=== PATIENT | female | born 1935 | race Caucasian/White ===

== ENCOUNTER → 2017-10-11 | Day surgery (SDC) | payer MEDICARE ==
[~2017-10-11] VITALS: Ht 157.5 cm; Wt 54.5 kg
[~2017-10-11] MED LIST: BACITRACIN TOP OINT 15 GM TUBE ONE; CHLORHEXIDINE GLUCONATE 2 % 1 PACK (2 CLOTHS) TOPICAL PRN; CIPROFLOXACIN/DEXT 400 MG/200 ML IV SCH; INSULIN HUMAN REGULAR 1,000 UNITS/10 ML VIAL SQ PRN; LACTATED RINGER'S 1000 ML IV PRN; LIDOCAINE 1%/EPINEPHrine 1:100,000 SOLN 30 ML VIAL ONE; METOPROLOL TARTRATE 25 MG TAB PO PRN; MINERAL OIL 10 ML VIAL ONE; OLME1TAB13 PO; POVIDONE IODINE 5% (ANTISEPSIS KIT) 4 APPLICATIONS EACH NARE PRN; SIMV20TA PO; SODIUM CHLORID 0.9% 500 ML IV PRN
[2017-10-11 08:31] LABS: HEMOGLOBIN 11.4 GM/DL (11.6-15.3); MEAN CORPUSCULAR HEMOGLOBIN 28.8 PG (27.0-34.0); MEAN CORPUSCULAR HGB CONC 32.7 % (32.0-36.0); MEAN PLATELET VOLUME 7.6 FL (7.0-11.0); PLATELET COUNT 273 TH/MM3 (150-450); RED BLOOD COUNT 3.98 MIL/MM3 (4.00-5.30); RED CELL DISTRIBUTION WIDTH 12.9 % (11.6-17.2); WHITE BLOOD COUNT 4.7 TH/MM3 (4.0-11.0)
[2017-10-11] MEDS: BUPIVACAINE/EPINEPHRINE 0.5% PF 10 ML VIAL INFIL ONE ×2 (09:27→09:38)
[2017-10-11 12:30] VITALS: BP 108/48; PULSE 64; RESP 16; TEMP 98.1; O2SAT 100
--- NOTE | 2017-10-11 14:16 | PD.OP ---
Operative Report Date of Surgery: Oct 11, 2017 Preoperative Diagnosis: (1) Melanoma of scalp Postoperative Diagnosis: (1) Melanoma of scalp Procedure: Wide local excision of left frontal scalp melanoma Anesthesia: Gen. Surgeon: Nabeel Velasquez Mr Teacher(s): . Operation and Findings: The patient is an 82-year-old female who presented to my clinic with a biopsy- proven left frontal scalp melanoma. Risks benefits and alternative treatments were discussed. All questions answered. The patient, per my recommendation, elected to assume the risks of operative treatment. Informed consent was therefore obtained for a wide local excision of the lesion. The surgical site was marked in preoperative holding. Antibiotics were given on-call to the operating room. The patient was taken to the operating room. All pressure points were padded. After the smooth induction of general anesthesia, a timeout was performed. The hair overlying the lesion was shaved with clippers. The lesion was outlined. It measured roughly 1.3 cm in greatest dimension. A 1 cm margin was then drawn around the lesion. Following this, 20 mls total of 1% lidocaine with epinephrine and half percent Marcaine with epinephrine mixed 1-1 was instilled into and around the surgical site. The surgical site was prepped and draped in the usual sterile fashion. Sharp dissection was used to free the specimen from the adjacent tissue. Galea was taken with the specimen as the deep margin. The specimen was marked and sent to pathology for permanent section. The wound was irrigated. Hemostasis was obtained. The wound, with contraction, now measured roughly 5cms. a 3-0 PDS was then used and a pursestring fashion, allowing the wound to be cinched closed significantly , though not entirely. Hemostasis was again ensured. A bolster dressing was fashioned out of mineral oil cotton balls Xeroform and bacitracin and tied in place over the wound using 2-0 silk. The wound was further dressed with 4 x 4 gauze and AVD pads followed by craniotomy stockinette. The patient was awoken smoothly from anesthesia and arrive stable and doing well to the PACU. All needle sponge and instrument counts were correct 2. Nabeel Velasquez MD Oct 11, 2017 14:16
== END | disposition home or self-care (01) ==
LOC: PHSDC 07:26
PROVIDERS: ATTEND Student in an Organized Health Care Education/Training Program
DX: C43.4 Malignant melanoma of scalp and neck (principal); I10 Essential (primary) hypertension; Z01.818 Encounter for other preprocedural examination
CPT/HCPCS: 00300; 11622; 36415; 85027; 88305; J0744; J7120; J3010

== ENCOUNTER → 2017-10-18 | Day surgery (SDC) | payer MEDICARE ==
[~2017-10-18] VITALS: Ht 157.5 cm; Wt 55.8 kg
[~2017-10-18] MED LIST changes: +BUPIVACAINE/EPINEPHRINE 0.25% 50 ML VIAL ONE; +CIPROFLOXACIN 400 MG PREMIX 200 ML ONE; +DO NOT ADM ANY ANTICOAGULANT DRUGS PRN; -INSULIN HUMAN REGULAR 1,000 UNITS/10 ML VIAL SQ PRN; +LACTATED RINGER'S 1000 ML IV SCH; -LIDOCAINE 1%/EPINEPHrine 1:100,000 SOLN 30 ML VIAL ONE; +LIDOCAINE 2% JELLY 5 ML TUBE ONE; +LIDOCAINE 2%/EPINEPHrine PF 1:200,000 20ML SDV ONE; -MINERAL OIL 10 ML VIAL ONE; +MULTTAB67 PO; +NEOMYCIN/POLYMYXIN 1 ML G.U. IRRIGANT ONE; +oxyCODONE/ACETAMINOPHEN 5 MG/325 MG TAB PO PRN
--- NOTE | 2017-10-18 16:15 | PD.OP ---
Operative Report Date of Surgery: Oct 18, 2017 Preoperative Diagnosis: (1) Scalp wound (2) Melanoma of scalp Postoperative Diagnosis: (1) Melanoma of scalp (2) Scalp wound Procedure: Local tissue rearrangement of 4 cm scalp wound (the primary and secondary defect area totaled over 60 cm Anesthesia: Gen. Surgeon: Nabeel Velasquez Candy Forming Machine Operator(s): Олег Molina Operation and Findings: This is an 82-year-old female who presented to the plastic surgery clinic with a biopsy-proven left frontal scalp melanoma. She is now one week status post wide local excision of the above. Her permanent pathology showed negative margins. Although permanent pathology was read as melanoma in situ, the pathology from the rn care transition excision showed invasion to a depth of 0.7 mm as well as positive peripheral and deep margins. As such during wide local excision one week ago, the lesion was resected with one-sided meter margins. This left a defect of almost 4 cm in diameter. The patient was advised that this would likely require rotational flaps, though a skin graft might be necessary. The risks benefits and alternative treatments were discussed with the patient. Specific risks included but were not limited to permanent numbness to the top of her head, hair loss, and additional incisions to allow for the rotation. All questions were answered. The patient expressed understanding of the above and elected to assume the risks of operative closure of the above wound. Informed consent was therefore obtained. The patient was marked in the preoperative holding day. The patient was given preoperative antibiotics early education teacher to the operating room. She was taken to the operating room. All pressure points were padded. After the smooth induction of general anesthesia, a supraorbital nerve block was performed by injecting 2% lidocaine with epinephrine (3 mL) and a horizontal superficial subcutaneous bar overlying the supraorbital and supratrochlear foramen. Following this the surgical site as well as roughly 10 cm around the surgical site was injected with a total of 40 mL of 2% lidocaine with epinephrine and quarter percent Marcaine mixed 1-1. The surgical site was shaved with clippers. The surgical site was prepped and draped in the usual sterile fashion. Fibrinous exudate covering the wound bed was sharply debrided. There was minimal surrounding erythema. The wound bed looked clean. Using sharp and blunt dissection, the surrounding scalp was widely undermined in the subgaleal plane to roughly 10-12 cm circumferentially. Hemostasis was obtained with Bovie cautery. At this point opposing double hooks were used to simulate an attempt at skin approximation. There was excessive tension on the closure. As such double opposing rotational galea and skin composite flaps were creating using the 15 blade. These were held in place with 3-0 Vicryl interrupted. 3-0 Vicryl interrupteds were then used to close the remainder of the incisions by dividing the incisions and half sequentially. Following this interrupted 40 nylons in a horizontal mattress fashion were used to get excellent incision edge eversion centrally. Lastly a running locking 4-0 chromic was used for final skin closure. The wound was cleansed. Bacitracin and Xeroform were used to dress the wound, followed by dry gauze fluffs an abd pad and Jose G wrap for light compression followed by a craniotomy stockinette. All needle sponge and instrument counts were correct 2. The patient was awoken from anesthesia and arrived stable and doing well to the PACU Nabeel Velasquez MD Oct 18, 2017 16:15
[2017-10-18 17:46] VITALS: BP 118/50; PULSE 65; RESP 18; TEMP 96.8; O2SAT 100
--- NOTE | 2017-10-19 17:50 | EKG ---
Date Performed: 10/18/2017 Time Performed: 11:58:21 PTAGE: 82 years EKG: SINUS BRADYCARDIA BORDERLINE ECG PREVIOUS TRACING : 07/17/2013 15.04 DOCTOR: Emmie Peña Interpretating Date/Time 10/19/2017 17:40:14
== END | disposition home or self-care (01) ==
LOC: HSDC 11:15
PROVIDERS: ATTEND Student in an Organized Health Care Education/Training Program
DX: C43.4 Malignant melanoma of scalp and neck (principal); I10 Essential (primary) hypertension; Z01.810 Encounter for preprocedural cardiovascular examination
CPT/HCPCS: 00300; 14021; 93005; J0744; J3010; J7120

== ENCOUNTER 2017-10-21 11:30 | Inpatient (IN) | payer MEDICARE ==
[2017-10-21] VITALS (8 sets, daily range): BP systolic 114–153; BP diastolic 57–68; PULSE 56–65; RESP 14–24; TEMP 96–99; O2SAT 96–100
[~2017-10-21] VITALS: Ht 157.5 cm; Wt 56.0 kg
[~2017-10-21 11:30] MED LIST changes: -BACITRACIN TOP OINT 15 GM TUBE ONE; -BUPIVACAINE/EPINEPHRINE 0.25% 50 ML VIAL ONE; -CHLORHEXIDINE GLUCONATE 2 % 1 PACK (2 CLOTHS) TOPICAL PRN; -CIPROFLOXACIN 400 MG PREMIX 200 ML ONE; -CIPROFLOXACIN/DEXT 400 MG/200 ML IV SCH; -DO NOT ADM ANY ANTICOAGULANT DRUGS PRN; -LACTATED RINGER'S 1000 ML IV PRN; -LACTATED RINGER'S 1000 ML IV SCH; -LIDOCAINE 2% JELLY 5 ML TUBE ONE; -LIDOCAINE 2%/EPINEPHrine PF 1:200,000 20ML SDV ONE; -METOPROLOL TARTRATE 25 MG TAB PO PRN; -NEOMYCIN/POLYMYXIN 1 ML G.U. IRRIGANT ONE; -POVIDONE IODINE 5% (ANTISEPSIS KIT) 4 APPLICATIONS EACH NARE PRN; -SODIUM CHLORID 0.9% 500 ML IV PRN; -oxyCODONE/ACETAMINOPHEN 5 MG/325 MG TAB PO PRN
[2017-10-21] MEDS ORDERED: SODIUM CHLOR 0.9% 1000 ML INJ 1,000 ML IV ONE ×2 (12:00→13:00)
--- NOTE | 2017-10-21 12:19 | RADRPT ---
EXAM DATE/TIME: 10/21/2017 12:06 [facility] COMPARISON: No previous studies available for comparison. INDICATIONS : Syncope, fever, short of breath. MEDICAL HISTORY : Melanoma SURGICAL HISTORY : Large Melanoma removed top of head. ENCOUNTER: Initial ACUITY: 1 day PAIN SCORE: 0/10 LOCATION: Bilateral chest FINDINGS: The lungs are clear without infiltrate, nodule, or mass. There is no appreciable pleural effusion fo r technique. Heart and mediastinum are unremarkable. There is evidence for prior granulomatous expos ure with calcified hilar lymph nodes. IMPRESSION: No acute cardiopulmonary disease. Deena Estrada MD on October 21, 2017 at 12:16 Board Certified Radiologist. This report was verified electronically.
[2017-10-21 12:26] LABS: AUTOMATED NEUTROPHIL # 8.9 TH/MM3 (1.8-7.7); BASOPHIL % 0.3 % (0.0-2.0); EOSINOPHIL # 0.1 TH/MM3 (0-0.4); EOSINOPHIL % 1.2 % (0.0-4.0); HEMATOCRIT 32.1 % (35.0-46.0); HEMOGLOBIN 11.5 GM/DL (11.6-15.3); LYMPH % 11.4 % (9.0-44.0); LYMPHOCYTE # 1.3 TH/MM3 (1.0-4.8); MEAN CELL VOLUME 88.1 FL (80.0-100.0); MEAN CORPUSCULAR HEMOGLOBIN 31.5 PG (27.0-34.0); MEAN CORPUSCULAR HGB CONC 35.8 % (32.0-36.0); MEAN PLATELET VOLUME 7.5 FL (7.0-11.0); MONOCYTE # 0.7 TH/MM3 (0-0.9); NEUT % 81.1 % (16.0-70.0); PLATELET COUNT 281 TH/MM3 (150-450); PROTHROMBIN TIME - PATIENT 10.5 SEC (9.8-11.6); RED BLOOD COUNT 3.65 MIL/MM3 (4.00-5.30); WHITE BLOOD COUNT 10.9 TH/MM3 (4.0-11.0)
--- NOTE | 2017-10-21 12:45 | RADRPT ---
EXAM DATE/TIME: 10/21/2017 12:13 [facility] COMPARISON: No previous studies available for comparison. INDICATIONS : Patient had a syncopal episode today, now feeling weak. RADIATION DOSE: 56.35 CTDIvol (mGy) MEDICAL HISTORY : Hypertension. Arthritis. Renal disease,melanoma SURGICAL HISTORY : Hysterectomy. Melanoma removed from head ENCOUNTER: Initial ACUITY: 1 day PAIN SCALE: 3/10 LOCATION: cranial TECHNIQUE: Multiple contiguous axial images were obtained of the head. Using automated exposure control and adj ustment of the mA and/or kV according to patient size, radiation dose was kept as low as reasonably a chievable to obtain optimal diagnostic quality images. DICOM format image data is available electro nically for review and comparison. FINDINGS: There is no evidence for intracranial hemorrhage, mass effect, mass lesions, edema, or extra-axial fl uid collections. The visualized bony structures appear intact. The ventricles are normal size for t he patient's age. There are no signs of acute infarction for technique. IMPRESSION: Unremarkable study. Deena Estrada MD on October 21, 2017 at 12:42 Board Certified Radiologist. This report was verified electronically.
--- NOTE | 2017-10-21 12:47 | PD ---
HPI Chief Complaint: Syncope/Near-Syncope Time Seen by Provider: 11:39 Travel History International Travel<30 days: No Contact w/Intl Traveler<30days: No Traveled to known affect area: No History of Present Illness HPI 82-year-old female that presents to the ED for evaluation of syncope as well as possible sepsis. Patient has a history of hypertension as well as melanoma that was removed at the beginning of this month at this facility. Per patient she had a melanoma removed and on 18 October she had the skin reattached under anesthesia. Per family member yesterday patient had a syncopal episode while standing and she looked to the right and then she passed out. She did not seek treatment at the time and she did not hit her head. Today she was sitting and she was getting her dressing change and then she developed another syncopal episode. She did not fell down but the family member was able to put her on the ground. She denies ever being worked up for this in the past. She denies any fevers but since having this she has had chills and cannot stop shaking of my examination. She denies any cough or runny nose. No chest pain or shortness of breath. She does state having some mild abdominal pain on occasion , but she states is more on her back. Has an allergy to penicillin. No other medical issues. No urinary or BM issues. Pain per patient is 4/10 on the back and 6/10 on the head. She denies any blurry vision or double vision. No discharge from the wound on the head. PFSH Past Medical History Cancer: Yes (SKIN CANCER) Cardiovascular Problems: No Diabetes: No Diminished Hearing: No Endocrine: No Genitourinary: No Hepatitis: No Hiatal Hernia: No Hypertension: Yes Immune Disorder: No Musculoskeletal: Yes (ARTHRITIS) Neurologic: No Psychiatric: No Reproductive: No Respiratory: No Thyroid Disease: No Past Surgical History Abdominal Surgery: No AICD: No Cardiac Surgery: No Ear Surgery: No Endocrine Surgery: No Eye Surgery: Yes (BILAT CATARACT SX) Genitourinary Surgery: No Gynecologic Surgery: Yes ( X 2, HYSTERECTOMY) Hysterectomy: Yes Joint Replacement: Yes (LEFT/right KNEE) Oral Surgery: No Pacemaker: No Thoracic Surgery: No Social History Alcohol Use: No Tobacco Use: No Substance Use: No Allergies-Medications (Allergen,Severity, Reaction): Coded Allergies: penicillin G (Verified Allergy, Severe, HEART, 10/21/17) Reported Meds & Prescriptions Reported Meds & Active Scripts Active Reported Multiple Vitamin 1 Tab 1 Tab PO DAILY Simvastatin 20 Mg Tab 20 Mg PO DAILY Olmesartan 40 Mg Tab 40 Mg PO DAILY Review of Systems Except as stated in HPI: all other systems reviewed are Neg Physical Exam Narrative GENERAL: SKIN: Warm and dry. She has a surgical scar to the head that appears to be recent. Patient has suturing HEAD: Atraumatic. Normocephalic. EYES: Pupils equal and round. No scleral icterus. No injection or drainage. ENT: No nasal bleeding or discharge. Mucous membranes pink and moist. Tongue is midline. No uvula deviation. NECK: Trachea midline. No JVD. CARDIOVASCULAR: Regular rate and rhythm. No murmurs, S3, S4. RESPIRATORY: No accessory muscle use. Clear to auscultation. Breath sounds equal bilaterally. GASTROINTESTINAL: Abdomen soft, non-tender, nondistended. Hepatic and splenic margins not palpable. MUSCULOSKELETAL: Extremities without clubbing, cyanosis, or edema. No obvious deformities. Full range of motion of the upper and lower extremities bilaterally. 2+ pulses bilaterally. NEUROLOGICAL: Awake and alert. No obvious cranial nerve deficits. Motor grossly within normal limits. Five out of 5 muscle strength in the arms and legs. Normal speech. PSYCHIATRIC: Appropriate mood and affect; insight and judgment normal. Data Data Last Documented VS Vital Signs Date Time Temp Pulse Resp B/P (MAP) Pulse Ox O2 Delivery O2 Flow Rate FiO2 10/21/17 14:28 97.7 65 15 134/63 (86) 98 Room Air Orders Orders Electrocardiogram (10/21/17 11:49) Complete Blood Count With Diff (10/21/17 11:49) Comprehensive Metabolic Panel (10/21/17 11:49) Ckmb (Isoenzyme) Profile (10/21/17 11:49) Troponin I (10/21/17 11:49) Prothrombin Time / Inr (Pt) (10/21/17 11:49) Act Partial Throm Time (Ptt) (10/21/17 11:49) Blood Culture (10/21/17 11:49) Lipase (10/21/17 11:49) Urinalysis - C+S If Indicated (10/21/17 11:49) Cath For Specimen (10/21/17 11:49) Magnesium (Mg) (10/21/17 11:49) Thyroid Stimulating Hormone (10/21/17 11:49) Chest, Single Ap (10/21/17 11:49) Ct Brain W/O Iv Contrast(Rout) (10/21/17 11:49) Iv Access Insert/Monitor (10/21/17 11:49) Ecg Monitoring (10/21/17 11:49) Oximetry (10/21/17 11:49) Orthostatic Vital Signs (10/21/17 11:49) Lactic Acid Sepsis Protocol (10/21/17 11:49) Sodium Chlor 0.9% 1000 Ml Inj (Ns 1000 M (10/21/17 12:00) Sodium Chlor 0.9% 1000 Ml Inj (Ns 1000 M (10/21/17 13:00) Acetaminophen (Tylenol) (10/21/17 13:15) CKMB (10/21/17 12:00) CKMB% (10/21/17 12:00) Ondansetron Inj (Zofran Inj) (10/21/17 13:30) Influenzae A/B Antigen (10/21/17 13:31) Vancomycin Inj (Vancomycin Inj) (10/21/17 13:31) Aztreonam Inj (Azactam Inj) (10/21/17 13:31) Metronidazole 500 Mg Inj (Flagyl 500 Mg (10/21/17 13:31) Admit Order (Ed Use Only) (10/21/17 14:36) Labs Laboratory Tests Test 10/21/17 12:00 10/21/17 12:05 White Blood Count 10.9 TH/MM3 Red Blood Count 3.65 MIL/MM3 Hemoglobin 11.5 GM/DL Hematocrit 32.1 % Mean Corpuscular Volume 88.1 FL Mean Corpuscular Hemoglobin 31.5 PG Mean Corpuscular Hemoglobin Concent 35.8 % Red Cell Distribution Width 14.0 % Platelet Count 281 TH/MM3 Mean Platelet Volume 7.5 FL Neutrophils (%) (Auto) 81.1 % Lymphocytes (%) (Auto) 11.4 % Monocytes (%) (Auto) 6.0 % Eosinophils (%) (Auto) 1.2 % Basophils (%) (Auto) 0.3 % Neutrophils # (Auto) 8.9 TH/MM3 Lymphocytes # (Auto) 1.3 TH/MM3 Monocytes # (Auto) 0.7 TH/MM3 Eosinophils # (Auto) 0.1 TH/MM3 Basophils # (Auto) 0.0 TH/MM3 CBC Comment DIFF FINAL Differential Comment Prothrombin Time 10.5 SEC Prothromb Time International Ratio 1.0 RATIO Activated Partial Thromboplast Time 21.3 SEC Blood Urea Nitrogen 29 MG/DL Creatinine 1.44 MG/DL Random Glucose 102 MG/DL Total Protein 7.2 GM/DL Albumin 4.0 GM/DL Calcium Level 9.1 MG/DL Magnesium Level 1.7 MG/DL Alkaline Phosphatase 74 U/L Aspartate Amino Transf (AST/SGOT) 60 U/L Alanine Aminotransferase (ALT/SGPT) 53 U/L Total Bilirubin 0.3 MG/DL Sodium Level 132 MEQ/L Potassium Level 4.8 MEQ/L Chloride Level 102 MEQ/L Carbon Dioxide Level 21.9 MEQ/L Anion Gap 8 MEQ/L Estimat Glomerular Filtration Rate 35 ML/MIN Total Creatine Kinase 231 U/L Creatine Kinase MB 5.2 NG/ML Creatine Kinase MB % 2.3 % Troponin I LESS THAN 0.02 NG/ML Lipase 748 U/L Thyroid Stimulating Hormone 3rd Gen 2.190 uIU/ML Lactic Acid Level 1.6 mmol/L [facility] Medical Decision Making Medical Screen Exam Complete: Yes Emergency Medical Condition: Yes Medical Record Reviewed: Yes Interpretation(s) CBC & BMP Diagram 10/21/17 12:00 Total Protein 7.2, Albumin 4.0, Calcium Level 9.1, Magnesium Level 1.7, Alkaline Phosphatase 74, Aspartate Amino Transf (AST/SGOT) 60 H, Alanine Aminotransferase (ALT/SGPT) 53, Total Bilirubin 0.3 CT of the head was negative. Chest x-ray was negative for acute disease. Lactic acid within normal limits. EKG shows sinus rhythm with no sign of acute ischemia or arrhythmia. Troponin and CKMB were negative. Differential Diagnosis Fever versus sepsis versus syncope versus presyncope versus cellulitis versus postsurgical infection Narrative Course 82-year-old female that presents to the ED for evaluation of syncope and fever. Patient was properly examined and was found to have signs and symptoms concerning for sepsis and syncope. Labs and imaging were ordered. Patient was found to be hypothermic at 96. She was put on the warmer. Labs and imaging were ordered. Patient was turned IV fluids. Her surgical scar for the most part looks okay except there is some swelling but no obvious purulence or redness. Labs and imaging wasn't she unremarkable. Patient does appear to have acute kidney injury. Patient initially had barely any output from her [place] but after given fluid she's been putting good urine. At this time I recommend admission for further evaluation of the syncope and possible sepsis. Patient agrees with this plan. Patient feels improved after medications given and fluids given. Patient was started antibiotics to cover for sepsis. Case was discussed with my attending Dr. Weeks who evaluated the patient and agrees with plan. Case discussed with the residents who agreed admission to their attending. Diagnosis Primary Impression: Syncope Qualified Codes: R55 - Syncope and collapse Additional Impressions: Hypothermia Qualified Codes: T68.XXXA - Hypothermia, initial encounter Acute kidney injury Scalp wound Qualified Codes: S01.00XA - Unspecified open wound of scalp, initial encounter Admitting Information Admitting Physician Requests: Observation Sebastian Machado Oct 21, 2017 12:47
[2017-10-21 13:09] LABS: ALKALINE PHOSPHATASE 74 U/L (45-117); ALT (GPT) 53 U/L (10-53); AST (GOT) 60 U/L (15-37); BICARBONATE 21.9 MEQ/L (21.0-32.0); BLOOD UREA NITROGEN 29 MG/DL (7-18); CALCIUM 9.1 MG/DL (8.5-10.1); CHLORIDE 102 MEQ/L (98-107); CREATININE 1.44 MG/DL (0.50-1.00); GLOMERULAR FILTRATION RATE 35 ML/MIN (>89); GLUCOSE,RANDOM 102 MG/DL (74-106); MAGNESIUM 1.7 MG/DL (1.5-2.5); SODIUM (NA) 132 MEQ/L (136-145); TOTAL BILIRUBIN ADULT 0.3 MG/DL (0.2-1.0); TOTAL PROTEIN 7.2 GM/DL (6.4-8.2); TROPONIN I LESS THAN 0.02 NG/ML (0.02-0.05)
[2017-10-21] MEDS ORDERED: ACETAMINOPHEN 325 MG TAB PO ONE (13:15)
[2017-10-21] MEDS ORDERED: ONDANSETRON HCL 4 MG/2 ML VIAL IV PUSH ONE (13:30)
[2017-10-21] MEDS ORDERED: VANCOMYCIN INJ 1,000 MG in SODIUM CHLOR 0.9% 250 ML INJ 250 ML IV STA (13:31)
[2017-10-21] MEDS ORDERED: AZTREONAM INJ 2,000 MG in SODIUM CHLORIDE 0.9% INJ 100 ML IV STA (13:31)
[2017-10-21] MEDS ORDERED: metroNIDAZOLE 500 MG INJ 100 ML IV STA (13:31)
--- NOTE | 2017-10-21 14:37 | PD ---
Physical Exam Date Seen by Provider: Oct 21, 2017 Time Seen by Provider: 14:00 Narrative I am seeing this patient with Sebastian Machado PA-C. This is an 82-year-old female who presents after having syncopal episode 2 episodes. The patient had melanoma removed from her scalp on the of this month. There is no reported fevers, chills. Patient was noted to have a temperature of 96.0 rectally. She was placed on the monitor and started on a bear hugger. White blood cell count is within normal limits. There is no evidence of infection on the melanoma site of her scalp. She was noted to have a BUN and creatinine of 29/1.44. Data Data Last Documented VS Vital Signs Date Time Temp Pulse Resp B/P (MAP) Pulse Ox O2 Delivery O2 Flow Rate FiO2 10/21/17 14:28 97.7 65 15 134/63 (86) 98 Room Air Orders Orders Electrocardiogram (10/21/17 11:49) Complete Blood Count With Diff (10/21/17 11:49) Comprehensive Metabolic Panel (10/21/17 11:49) Ckmb (Isoenzyme) Profile (10/21/17 11:49) Troponin I (10/21/17 11:49) Prothrombin Time / Inr (Pt) (10/21/17 11:49) Act Partial Throm Time (Ptt) (10/21/17 11:49) Blood Culture (10/21/17 11:49) Lipase (10/21/17 11:49) Urinalysis - C+S If Indicated (10/21/17 11:49) Cath For Specimen (10/21/17 11:49) Magnesium (Mg) (10/21/17 11:49) Thyroid Stimulating Hormone (10/21/17 11:49) Chest, Single Ap (10/21/17 11:49) Ct Brain W/O Iv Contrast(Rout) (10/21/17 11:49) Iv Access Insert/Monitor (10/21/17 11:49) Ecg Monitoring (10/21/17 11:49) Oximetry (10/21/17 11:49) Orthostatic Vital Signs (10/21/17 11:49) Lactic Acid Sepsis Protocol (10/21/17 11:49) Sodium Chlor 0.9% 1000 Ml Inj (Ns 1000 M (10/21/17 12:00) Sodium Chlor 0.9% 1000 Ml Inj (Ns 1000 M (10/21/17 13:00) Acetaminophen (Tylenol) (10/21/17 13:15) CKMB (10/21/17 12:00) CKMB% (10/21/17 12:00) Ondansetron Inj (Zofran Inj) (10/21/17 13:30) Influenzae A/B Antigen (10/21/17 13:31) Vancomycin Inj (Vancomycin Inj) (10/21/17 13:31) Aztreonam Inj (Azactam Inj) (10/21/17 13:31) Metronidazole 500 Mg Inj (Flagyl 500 Mg (10/21/17 13:31) Labs Laboratory Tests Test 10/21/17 12:00 10/21/17 12:05 White Blood Count 10.9 TH/MM3 Red Blood Count 3.65 MIL/MM3 Hemoglobin 11.5 GM/DL Hematocrit 32.1 % Mean Corpuscular Volume 88.1 FL Mean Corpuscular Hemoglobin 31.5 PG Mean Corpuscular Hemoglobin Concent 35.8 % Red Cell Distribution Width 14.0 % Platelet Count 281 TH/MM3 Mean Platelet Volume 7.5 FL Neutrophils (%) (Auto) 81.1 % Lymphocytes (%) (Auto) 11.4 % Monocytes (%) (Auto) 6.0 % Eosinophils (%) (Auto) 1.2 % Basophils (%) (Auto) 0.3 % Neutrophils # (Auto) 8.9 TH/MM3 Lymphocytes # (Auto) 1.3 TH/MM3 Monocytes # (Auto) 0.7 TH/MM3 Eosinophils # (Auto) 0.1 TH/MM3 Basophils # (Auto) 0.0 TH/MM3 CBC Comment DIFF FINAL Differential Comment Prothrombin Time 10.5 SEC Prothromb Time International Ratio 1.0 RATIO Activated Partial Thromboplast Time 21.3 SEC Blood Urea Nitrogen 29 MG/DL Creatinine 1.44 MG/DL Random Glucose 102 MG/DL Total Protein 7.2 GM/DL Albumin 4.0 GM/DL Calcium Level 9.1 MG/DL Magnesium Level 1.7 MG/DL Alkaline Phosphatase 74 U/L Aspartate Amino Transf (AST/SGOT) 60 U/L Alanine Aminotransferase (ALT/SGPT) 53 U/L Total Bilirubin 0.3 MG/DL Sodium Level 132 MEQ/L Potassium Level 4.8 MEQ/L Chloride Level 102 MEQ/L Carbon Dioxide Level 21.9 MEQ/L Anion Gap 8 MEQ/L Estimat Glomerular Filtration Rate 35 ML/MIN Total Creatine Kinase 231 U/L Creatine Kinase MB 5.2 NG/ML Creatine Kinase MB % 2.3 % Troponin I LESS THAN 0.02 NG/ML Lipase 748 U/L Thyroid Stimulating Hormone 3rd Gen 2.190 uIU/ML Lactic Acid Level 1.6 mmol/L [facility] Medical Record Reviewed: Yes Supervised Visit with ART: Yes Narrative Course 82-year-old female presents after syncopal episodes 2. The patient did appear to be volume depleted and has been given IV fluid boluses 2 episodes. The patient initially had a catheter placed to evaluate for urine output. Initially urine output was very little. She is now putting out more urine after the fluid boluses. Given her syncopal episode and her hypothermic state, she will be admitted to the hospital under observation. She had been given 1 dose of antibiotics to cover for sepsis. The case was discussed with the resident for the admitting service and will be admitted to Diagnosis Primary Impression: Syncope Additional Impressions: Acute kidney injury Hypothermia Recent removal of melanoma from the scalp. Admitting Information Admitting Physician Requests: Observation Umer Weeks MD Oct 21, 2017 14:37
[2017-10-21] MEDS ORDERED: GADODIAMIDE PF 287 MG/ML 10 ML VIAL (for RAD MRI) IVCONTRAST ONE (14:38)
--- NOTE | 2017-10-21 15:08 | HHI.HP ---
HPI Service Family Medicine Primary Care Physician Samaria Gonzalez MD Admission Diagnosis acute syncope, GLENYS, sepsis, hypothermia Diagnoses: Chief Complaint: syncope/near-syncope International Travel<30 Days: No Contact w/Intl Traveler<30days: No Known Affected Area: No History of Present Illness Ms Olmedo is a pleasant 82YO female w/PMHx of HTN and melanoma s/p Mohs surgery on 10/11 who presents to the ED after 2 syncopal/near syncopal events in the last 2 days. Yesterday when she stood up and turned she got dizzy and nearly fainted, but did not lose consciousness or fall. Today her niece changed the wound dressing on her head from Mohs surgery for melanoma, then the pt stood up from sitting and got dizzy, was helped safely to the floor by her niece , and lost consciousness for 2-3 minutes before opening her eyes and asked her niece "why am I on the floor"? Pt has no recollection of these events but knows she is not herself over the past few days. She was not incontinent of urine or stool at the time, but she notes she sometimes has to urinate but has trouble initiating a stream. Her back is also hurting badly for a couple of weeks with left > right. This occurred near the time when she was told by her PCP that she has a kidney problem. She is attended by her niece who does most of the reporting. Her niece indicates the pt was cold, dehydrated from reduced PO intake over the last several weeks, and has had chills today. The pt had Mohs surgery on her head on 10/11 for melanoma. On 10/18 the skin flap was closed by Dr Mandujano. Other sxs include pt feeling weak and lightheaded; uncontrolled BPs in August leading to prescription of a new medication the pt cannot recall the name of, and referral to a kidney specialist for the aforementioned kidney problem. Denies CP, SOB, N/V/D and DVT pain. (Cale Bello MD R1) Review of Systems Constitutional: COMPLAINS OF: Chills, Dizziness, Change in appetite (has not eaten much), DENIES: Fatigue, Fever, Weight gain, Weight loss Eyes: COMPLAINS OF: Blurred vision (felt foggy all day Wednesday and Wednesday), DENIES: Double Vision Ears, nose, mouth, throat: COMPLAINS OF: Vertigo (yesterday), DENIES: Nasal discharge, Throat pain, Hoarseness, Running Nose, Sinus Pain Respiratory: DENIES: Cough, Wheezing, Shortness of breath Cardiovascular: COMPLAINS OF: Syncope, Dyspnea on Exertion (not an acute change ), Lower Extremity Edema (was bad yesterday), DENIES: Chest pain, Palpitations, Orthopnea Gastrointestinal: COMPLAINS OF: Constipation (no BM since Wednesday), DENIES: Abdominal pain, Diarrhea, Nausea, Vomiting Genitourinary: COMPLAINS OF: Dysuria (has trouble initiating urine) Musculoskeletal: COMPLAINS OF: Back pain Integumentary: DENIES: Rash Hematologic/lymphatic: DENIES: Lymphadenopathy Neurologic: DENIES: Headache (Cale Bello MD R1) Past Family Social History Past Medical History HTN Past Surgical History x2 Hysterectomy TKA x2 Oophorectomy (1 ovary removed) 5 breast Bx Reported Medications Reported Meds & Active Scripts Active Reported Multiple Vitamin 1 Tab 1 Tab PO DAILY Simvastatin 20 Mg Tab 20 Mg PO DAILY Olmesartan 40 Mg Tab 40 Mg PO DAILY (Cale Bello MD R1) Allergies: Coded Allergies: penicillin G (Verified Allergy, Severe, HEART, 10/21/17) Family History Father - of [place] at age 59 Mother - at age 94 from heart failure Social History EtOH - none Tobacco - never smoker Drugs - none no coffee or tea lives with who is blind and cannot help much (Cale Bello MD R1) Physical Exam Vital Signs Vital Signs Date Time Temp Pulse Resp B/P (MAP) Pulse Ox O2 Delivery O2 Flow Rate FiO2 10/21/17 14:28 97.7 65 15 134/63 (86) 98 Room Air 10/21/17 11:54 100 Room Air 10/21/17 11:53 96.0 10/21/17 11:42 61 24 153/68 (96) 100 Room Air Physical Exam GENERAL: This is a well-nourished, well-developed patient in no apparent distress. SKIN: No rashes or ecchymoses. Warm and dry. Surgical flap on superior portion of scalp is healing well without exudate but is exquisitely tender to palpation. HEAD: Atraumatic. Normocephalic. Scalp tenderness as above. EYES: Pupils equal round and reactive. Extraocular motions intact. No scleral icterus. No injection or drainage. ENT: Nose without bleeding or drainage. Throat without erythema, tonsillar hypertrophy or exudate. Uvula midline. Airway patent. NECK: Trachea midline. No lymphadenopathy. Supple, nontender, no meningeal signs. CARDIOVASCULAR: Regular rate and rhythm with possible soft murmur; no gallop or rub. RESPIRATORY: Clear to auscultation. Breath sounds equal bilaterally. No wheezes , rales, or rhonchi. Costovertebral tenderness with left > right. GASTROINTESTINAL: Abdomen soft, non-tender, nondistended. No hepato-splenomegaly , or palpable masses. No guarding. MUSCULOSKELETAL: Extremities without clubbing, cyanosis, or edema. No joint tenderness, effusion, or edema noted. No calf tenderness. NEUROLOGICAL: AOx3. Cranial nerves II through XII grossly intact. Bilateral muscle weakness (4/5). Normal speech. Laboratory Laboratory Tests Test 10/21/17 12:00 10/21/17 12:05 10/21/17 14:25 White Blood Count 10.9 Red Blood Count 3.65 Hemoglobin 11.5 Hematocrit 32.1 Mean Corpuscular Volume 88.1 Mean Corpuscular Hemoglobin 31.5 Mean Corpuscular Hemoglobin Concent 35.8 Red Cell Distribution Width 14.0 Platelet Count 281 Mean Platelet Volume 7.5 Neutrophils (%) (Auto) 81.1 Lymphocytes (%) (Auto) 11.4 Monocytes (%) (Auto) 6.0 Eosinophils (%) (Auto) 1.2 Basophils (%) (Auto) 0.3 Neutrophils # (Auto) 8.9 Lymphocytes # (Auto) 1.3 Monocytes # (Auto) 0.7 Eosinophils # (Auto) 0.1 Basophils # (Auto) 0.0 CBC Comment DIFF FINAL Differential Comment Prothrombin Time 10.5 Prothromb Time International Ratio 1.0 Activated Partial Thromboplast Time 21.3 Blood Urea Nitrogen 29 Creatinine 1.44 Random Glucose 102 Total Protein 7.2 Albumin 4.0 Calcium Level 9.1 Magnesium Level 1.7 Alkaline Phosphatase 74 Aspartate Amino Transf (AST/SGOT) 60 Alanine Aminotransferase (ALT/SGPT) 53 Total Bilirubin 0.3 Sodium Level 132 Potassium Level 4.8 Chloride Level 102 Carbon Dioxide Level 21.9 Anion Gap 8 Estimat Glomerular Filtration Rate 35 Total Creatine Kinase 231 Creatine Kinase MB 5.2 Creatine Kinase MB % 2.3 Troponin I LESS THAN 0.02 Lipase 748 Thyroid Stimulating Hormone 3rd Gen 2.190 Lactic Acid Level 1.6 Date/Time Source Procedure Growth Status 10/21/17 12:05 Blood Peripheral Aerobic Blood Culture Pending Received 10/21/17 12:05 Blood Peripheral Anaerobic Blood Culture Pending Received 10/21/17 13:40 Nasal Washing Influenza Types A,B Antigen (GWEN) - Final NEGATIVE FOR FLU A AND B ANTIGEN.... Complete (Cale Bello MD R1) Result Diagram: 10/21/17 1200 10/21/17 1200 Imaging Last Impressions Renal Ultrasound 10/21/17 0000 Signed Impressions: Service Date/Time: September 16:39 - CONCLUSION: Left sided simple renal cyst. No evidence of hydronephrosis. Mild splenomegaly. Jermaine Rosa MD Carotid Artery Ultrasound 10/21/17 0000 Signed Impressions: Service Date/Time: September 16:49 - CONCLUSION: No evidence of hemodynamically significant carotid stenosis. Retrograde flow in left vertebral artery. Jermaine Rosa MD (Cale Bello MD R1) Septic Shock Reassessment Septic shock perfusion: reassessment completed (Cale Bello MD R1) Caprini VTE Risk Assessment Caprini VTE Risk Assessment: Mod/High Risk (score >= 2) Caprini Risk Assessment Model Point Value = 1 Point Value = 2 Point Value = 3 Point Value = 5 Age 41-60 Minor surgery BMI > 25 kg/m2 Swollen legs Varicose veins or History of unexplained or recurrent spontaneous Oral contraceptives or hormone replacement Sepsis (< 1 month) Serious lung disease, including pneumonia (< 1 month) Abnormal pulmonary function Acute myocardial infarction Congestive heart failure (< 1 month) History of inflammatory bowel disease Medical patient at bed rest Age 61-74 Arthroscopic surgery Major open surgery (> 45 min) Laparoscopic surgery (> 45 min) Malignancy Confined to bed (> 72 hours) Immobilizing plaster cast Central venous access Age >= 75 History of VTE Family history of VTE Factor V Leiden Prothrombin [id number] Lupus anticoagulant Anticardiolipin antibodies Elevated serum homocysteine Heparin-induced thrombocytopenia Other congenital or acquired thrombophilia Stroke (< 1 month) Elective arthroplasty Hip, pelvis, or leg fracture Acute spinal cord injury (< 1 month) Prophylaxis Regimen Total Risk Factor Score Risk Level Prophylaxis Regimen 0-1 Low Early ambulation 2 Moderate Order ONE of the following: *Sequential Compression Device (SCD) *Heparin 5000 units SQ BID 3-4 Higher Order ONE of the following medications: *Heparin 5000 units SQ TID *Enoxaparin/Lovenox 40 mg SQ daily (WT < 150 kg, CrCl > 30 mL/min) *Enoxaparin/Lovenox 30 mg SQ daily (WT < 150 kg, CrCl > 10-29 mL/min) *Enoxaparin/Lovenox 30 mg SQ BID (WT < 150 kg, CrCl > 30 mL/min) AND/OR *Sequential Compression Device (SCD) 5 or more Highest Order ONE of the following medications: *Heparin 5000 units SQ TID (Preferred with Epidurals) *Enoxaparin/Lovenox 40 mg SQ daily (WT < 150 kg, CrCl > 30 mL/min) *Enoxaparin/Lovenox 30 mg SQ daily (WT < 150 kg, CrCl > 10-29 mL/min) *Enoxaparin/Lovenox 30 mg SQ BID (WT < 150 kg, CrCl > 30 mL/min) AND *Sequential Compression Device (SCD) (Cale Bello MD R1) Assessment and Plan Assessment and Plan 82YO female w/PMHx HTN and melanoma s/p scalp surgery on 10/18 p/w 2 days of syncopal and near-syncopal episodes over the last 2 days. Consider orthostasis from dehydration and decreased PO intake vs bradycardia/CV etiology vs neurological etiology (vasovagal vs other) vs malignancy/mets. Pt met SIRS criteria on admit with rectal temp 96.0 and RR 24; however, no source of infection has been found (neg CXR and UA; blood cx pending). Impression: -Carotid US: negative -Renal US: left sided simple renal cyst; no hydropephrosis; mild splenomegaly -CT head: negative -CXR: negative for cardiopulmonary disease; however, calcified hilar lymph nodes noted -EKG: sinus bradycardia w/rate 56 and QTc 412ms -CBC: normal WBC, Hgb 11.5 -CMP: Na 132, BUN 29, Cr 1.44, AST 60 -Total CK 231 -CK-MB 5.2 (2.3%) -Trop 0.02 -Lipase 748 -TSH 2.19 -INR 1.0 -UA w/trace ketones, cx not indicated -Influenza a/b negative -Blood cx pending 1. Syncope w/LOC x1, no problems with swallowing though -Neuro consulted--appreciate recs -EEG -ECHO -PT -Tele -Activity OOB w/assistance -Will consider Cardiology consult pending ECHO results -Await AM labs for decision point (improved Cr) on MRI head and CT abdomen/ pelvis 2. SIRS/SEPSIS: (pt with Penicillin G allergy) -Sepsis protocol -> 2L NS IVF -Lactate 1.6 -WBC 10.9, left shift w/neutrophils 81.1% -Blood cx pending -UA neg--no cx indicated -Influenza a/b neg -Vancomycin 1g IV in ED -Aztreonam 2g IV in ED -Flagyl 100ml IV in ED 3. Head wound from melanoma surgery -Wound care consult -Tylenol 650mg pain/temp >100.4 4. GLENYS: Cr 0.January; 1.44 today and was told by her PCP she had a kidney problem in Aug 2017 -IVF as above -AM labs to follow 5. HTN -Pravastatin 40mg daily -Losartan 100mg daily 6. FEN/GI/PPx: -Fluids: 2x 1L boluses in ED, now mx NS IVF @100ml/hr -Electrolytes: hyponatremia to 132 in ED-> correcting with fluids as above -Nutrition: regular diet, as tolerated -GI: Protonix 40mg daily -PPx: Heparin 5,000 units q8h Bowel regimen Code Status Full Code Discussed Condition With Dr Frausto (Cale Bello MD R1) Problem List: (1) FEN/GI/PPx (2) Hypertension ICD Codes: I10 - Essential (primary) hypertension (3) Syncope ICD Codes: R55 - Syncope and collapse Status: Acute (4) Acute kidney injury ICD Codes: N17.9 - Acute kidney failure, unspecified Status: Acute (5) Scalp wound ICD Codes: S01.00XA - Unspecified open wound of scalp, initial encounter (6) Benign hypertension ICD Codes: I10 - Benign hypertension Status: Chronic (Cale Bello MD R1) Problem Qualifiers (1) Syncope: Qualified Codes: R55 - Syncope and collapse (2) Scalp wound: Qualified Codes: S01.00XA - Unspecified open wound of scalp, initial encounter Cale Bello MD R1 Oct 21, 2017 15:08 Nicole Sheikh MD Oct 22, 2017 09:31
[2017-10-21 15:28] LABS: BILIRUBIN, URINE NEG (NEG); BLOOD, URINE NEG (NEG); GLUCOSE,URINE NEG (NEG); KETONE, URINE TRACE mg/dL (NEG); NITRITE,URINE NEG (NEG); PH, URINE 6.5 (5.0-8.5); URINE COLOR LIGHT-YELLOW (YELLW/STRAW); URINE LEUKOCYTE ESTERASE NEG (NEG)
[2017-10-21] MEDS ORDERED: SODIUM CHLORIDE 0.9% FLUSH 10 ML FLUSH IV FLUSH PRN (15:45)
[2017-10-21] MEDS ORDERED: BISACODYL 10 MG SUPP RECTAL PRN (15:45)
[2017-10-21] MEDS ORDERED: LACTULOSE SYRUP 20 GM/30 ML CUP PO PRN (15:45)
[2017-10-21] MEDS ORDERED: SENNOSIDES 8.6 MG TAB PO PRN (15:45)
[2017-10-21] MEDS ORDERED: ONDANSETRON HCL 4 MG/2 ML VIAL IVP PRN (15:45)
[2017-10-21] MEDS ORDERED: NALOXONE HCL 0.4 MG/ML AMP IV PUSH PRN (15:45)
[2017-10-21] MEDS ORDERED: MAGNESIUM HYDROXIDE SUSP 30 ML CUP PO PRN (15:45)
--- NOTE | 2017-10-21 17:45 | RADRPT ---
EXAM DATE/TIME: 10/21/2017 16:39 [facility] COMPARISON: No previous studies available for comparison. INDICATIONS : Increased BUN/creatinine. MEDICAL HISTORY : Arthritis. Vertigo. Syncope. Hyperlipidemia. HTN. Renal disease. Dysuria. Skin cancer. Melanoma. SURGICAL HISTORY : section. Hysterectomy. Bilateral cataract surgery. Bilateral knee replacement. Melanoma re moved from scalp. ENCOUNTER: Initial ACUITY: 1 day PAIN SCORE: 5/10 LOCATION: Bilateral flank MEASUREMENTS: RIGHT KIDNEY: 9.0 x 4.3 x 4.1 cm LEFT KIDNEY: 8.2 x 3.4 x 3.0 cm FINDINGS: RIGHT KIDNEY: No evidence of mass or hydronephrosis. Echogenicity within normal limits. LEFT KIDNEY: 2.5 cm simple cyst in the upper pole. No evidence of hydronephrosis. Echogenicity within normal limit s. BLADDER: Bladder collapsed. Rollins catheter in place. Spleen is mildly prominent measuring 12.8 cm. CONCLUSION: Left sided simple renal cyst. No evidence of hydronephrosis. Mild splenomegaly. Jermaine Rosa MD on October 21, 2017 at 17:41 Board Certified Radiologist. This report was verified electronically.
--- NOTE | 2017-10-21 17:47 | RADRPT ---
EXAM DATE/TIME: 10/21/2017 16:49 [facility] COMPARISON: No previous studies available for comparison. INDICATIONS : Syncope. MEDICAL HISTORY : Arthritis. Vertigo. Syncope. Hyperlipidemia. HTN. Renal disease. Dysuria. Skin cancer. Melanoma. SURGICAL HISTORY : section. Hysterectomy. Bilateral cataract surgery. Bilateral knee replacement. Melanoma re moved from scalp. ENCOUNTER: Initial ACUITY: 1 day PAIN SCORE: 5/10 LOCATION: Bilateral neck PEAK SYSTOLIC VELOCITIES (cm/sec): ICA/CCA RATIO: Right: 0.5 Left: 0.6 ICA: Right: 90 Left: 104 CCA: Right: 167 Left: 161 ECA: Right: 75 Left: 124 VERTEBRAL: Right: 87 antegrade Left: 14 retrograde Elevated flow velocities and ICA/CCA ratios have been found to correlate with increased degrees of vessel stenosis, calculated as percentage of diameter relative to a normal segment of distal ICA/CCA FINDINGS: RIGHT CAROTID: Mild calcified plaque at the carotid bulb. No significant stenosis is visualized. The waveforms are within normal limits. LEFT CAROTID: Mild calcified plaque at the carotid bulb. No significant stenosis is visualized. The waveforms are within normal limits. VERTEBRAL ARTERIES: Retrograde flow seen in the left vertebral artery. Antegrade flow seen in the right vertebral artery. MISCELLANEOUS: None. CONCLUSION: No evidence of hemodynamically significant carotid stenosis. Retrograde flow in left vertebral artery. Jermaine Rosa MD on October 21, 2017 at 17:43 Board Certified Radiologist. This report was verified electronically.
[2017-10-21] MEDS: HEPARIN SODIUM - SQ 10,000 UNITS/ML VIAL SQ SCH ×2 (18:13→23:50)
[2017-10-21] MEDS: SODIUM CHLOR 0.9% 1000 ML INJ 1,000 ML IV SCH (18:13)
[2017-10-21] MEDS: DOCUSATE SODIUM 50 MG/SENNA 8.6 MG TAB PO SCH (19:55)
[2017-10-21] MEDS: SODIUM CHLORIDE 0.9% FLUSH 10 ML FLUSH IV FLUSH SCH (19:55)
--- NOTE | 2017-10-21 21:50 | HHI.FPPN ---
Subjective Subjective Patient seen and examined. Case reviewed and discussed Please refer to resident H&P for further details regarding HPI, ROS, PMH, SurgHx , FH and SocHx In summary, patient is a 82yoF with a history of recent scalp melanoma excision , HTN and now with syncopal episodes Patient is seen in the ED with her niece at the bedside. Niece reports that yesterday, patient became near syncopal yesterday. Today patient's niece was performing a dressing change on the scalp when patient had a syncopal episode for several minutes. No palpitations, chest pain, shortness of breath, STORM, neurologic changes preceding event. No shaking, no loss of urine. Hospital Objective Objective Last Impressions Renal Ultrasound 10/21/17 0000 Signed Impressions: Service Date/Time: September 16:39 - CONCLUSION: Left sided simple renal cyst. No evidence of hydronephrosis. Mild splenomegaly. Jermaine Rosa MD Carotid Artery Ultrasound 10/21/17 0000 Signed Impressions: Service Date/Time: September 16:49 - CONCLUSION: No evidence of hemodynamically significant carotid stenosis. Retrograde flow in left vertebral artery. Jermaine Rosa MD Laboratory Tests - Abnormals Test 10/21/17 12:00 10/21/17 12:05 10/21/17 14:25 10/21/17 21:10 Red Blood Count 3.65 MIL/MM3 Hemoglobin 11.5 GM/DL Hematocrit 32.1 % Neutrophils (%) (Auto) 81.1 % Neutrophils # (Auto) 8.9 TH/MM3 Activated Partial Thromboplast Time 21.3 SEC Blood Urea Nitrogen 29 MG/DL Creatinine 1.44 MG/DL Aspartate Amino Transf (AST/SGOT) 60 U/L Sodium Level 132 MEQ/L Estimat Glomerular Filtration Rate 35 ML/MIN Total Creatine Kinase 231 U/L Creatine Kinase MB 5.2 NG/ML Troponin I LESS THAN 0.02 NG/ML Lipase 748 U/L Urine Ketones TRACE mg/dL Vital Signs 10/21/17 10/21/17 10/21/17 10/21/17 11:42 11:53 11:54 14:28 Temp 96.0 97.7 Pulse 61 65 Resp 24 15 B/P (MAP) 153/68 (96) 134/63 (86) Pulse Ox 100 100 98 O2 Delivery Room Air Room Air Room Air 10/21/17 10/21/17 10/21/17 10/21/17 15:57 18:14 18:40 20:39 Temp 99.0 98.1 Pulse 65 56 60 66 Resp 15 14 17 17 B/P (MAP) 114/57 (76) 122/59 (80) 123/58 (79) 118/60 (79) Pulse Ox 96 96 O2 Delivery Room Air INTAKE & OUTPUT 10/22/17 07:00 Intake Total 2450 ml Balance 2450 ml Physical exam GENERAL: wdwn female resting in bed, lying flat. SKIN: Warm and dry. No rashes, lesions HEAD: Normocephalic. AT EYES: No scleral icterus. No injection or drainage. ENT: OP clear. MMM NECK: Supple, trachea midline. No JVD or lymphadenopathy. CARDIOVASCULAR: Regular rate and rhythm with 2/6 GURINDER, radiation to bilateral carotids, no gallops or rubs. RESPIRATORY: Breath sounds equal and clear bilaterally. No accessory muscle use. GASTROINTESTINAL: Abdomen soft, non-tender, nondistended. Normal active BS. MUSCULOSKELETAL: No cyanosis, or edema. No calf tenderness. BACK: Nontender without obvious deformity. No CVA tenderness. NEURO: Awake and alert. Normal speech. MAEW. CN grossly intact. Assessment Assessment 82yoF admitted with: Syncope Bradycardia Recent excision of melanoma HTN Renal Insufficiency PLAN PLAN Brain MRI 2D echo Carotids Neurology consult Orthostatic VS EEG Monitor wound Telemetry Physical therapy Patient seen and examined. Case reviewed and discussed Agree with plan of care as discussed with me and documented in the resident note. Nicole Sheikh MD Oct 21, 2017 21:50
[2017-10-22] VITALS (12 sets, daily range): BP systolic 107–147; BP diastolic 50–68; PULSE 51–63; RESP 16–18; TEMP 97–98.4; O2SAT 94–100
[2017-10-22] MEDS: SODIUM CHLOR 0.9% 1000 ML INJ 1,000 ML IV SCH ×3 (01:36→22:09)
[2017-10-22] MEDS: ACETAMINOPHEN 325 MG TAB PO PRN ×2 (04:00→12:45)
[2017-10-22 04:10] LABS: BASOPHIL % 0.3 % (0.0-2.0); EOSINOPHIL # 0.2 TH/MM3 (0-0.4); HEMATOCRIT 30.6 % (35.0-46.0); HEMOGLOBIN 10.4 GM/DL (11.6-15.3); LYMPH % 19.8 % (9.0-44.0); LYMPHOCYTE # 1.1 TH/MM3 (1.0-4.8); MEAN CORPUSCULAR HEMOGLOBIN 29.9 PG (27.0-34.0); MEAN CORPUSCULAR HGB CONC 33.9 % (32.0-36.0); MEAN PLATELET VOLUME 7.4 FL (7.0-11.0); MONO % 8.2 % (0.0-8.0); MONOCYTE # 0.5 TH/MM3 (0-0.9); NEUT % 68.7 % (16.0-70.0); PLATELET COUNT 272 TH/MM3 (150-450); RED BLOOD COUNT 3.48 MIL/MM3 (4.00-5.30); RED CELL DISTRIBUTION WIDTH 13.7 % (11.6-17.2); WHITE BLOOD COUNT 5.8 TH/MM3 (4.0-11.0)
[2017-10-22 04:59] LABS: ALBUMIN 3.2 GM/DL (3.4-5.0); ALKALINE PHOSPHATASE 63 U/L (45-117); ALT (GPT) 48 U/L (10-53); AST (GOT) 52 U/L (15-37); BICARBONATE 21.6 MEQ/L (21.0-32.0); BLOOD UREA NITROGEN 17 MG/DL (7-18); CALCIUM 8.2 MG/DL (8.5-10.1); CHLORIDE 111 MEQ/L (98-107); CREATININE 0.96 MG/DL (0.50-1.00); GLOMERULAR FILTRATION RATE 55 ML/MIN (>89); GLUCOSE,RANDOM 87 MG/DL (74-106); SODIUM (NA) 140 MEQ/L (136-145); TOTAL BILIRUBIN ADULT 0.3 MG/DL (0.2-1.0)
[2017-10-22] MEDS: SODIUM CHLORIDE 0.9% FLUSH 10 ML FLUSH IV FLUSH SCH ×2 (08:30→20:40)
[2017-10-22] MEDS: HEPARIN SODIUM - SQ 10,000 UNITS/ML VIAL SQ SCH ×2 (08:30→16:37)
[2017-10-22] MEDS: PANTOPRAZOLE SOD 40 MG DELAYED RELEASE TAB PO SCH (08:30)
[2017-10-22] MEDS: PRAVASTATIN SOD 40 MG TAB PO SCH (08:31)
[2017-10-22] MEDS: MULTIVITAMIN TAB PO SCH (08:34)
[2017-10-22] MEDS: DOCUSATE SODIUM 50 MG/SENNA 8.6 MG TAB PO SCH ×2 (08:34→20:39)
[2017-10-22] MEDS: LOSARTAN 50 MG TAB PO SCH (08:34)
--- NOTE | 2017-10-22 10:26 | EKG ---
Date Performed: 10/21/2017 Time Performed: 12:18:02 PTAGE: 82 years EKG: SINUS BRADYCARDIA BORDERLINE ECG PREVIOUS TRACING : 10/18/2017 11.58 No change from previous tracing noted. DOCTOR: Medardo Lynne Interpretating Date/Time 10/22/2017 10:25:57
--- NOTE | 2017-10-22 13:08 | HHI.FPPN ---
Subjective Remarks Ms Olmedo had no acute events overnight and slept well. PT worked with her this morning and with ambulating there was no dizziness or syncope. She is feeling much better today, no pain, stooling, voiding, and taking PO. We will remove her Bryant today and see if she can void on her own without assistance. Denies CP, SOB, N/V/D, and DVT pain. (Cale Bello MD R1) Objective Vitals Vital Signs Date Time Temp Pulse Resp B/P (MAP) Pulse Ox O2 Delivery O2 Flow Rate FiO2 10/22/17 12:18 107/57 (74) 10/22/17 12:17 116/51 (72) 10/22/17 12:16 97.1 59 18 117/50 (72) 94 10/22/17 09:28 21 10/22/17 07:27 97.0 62 18 143/64 (90) 97 10/22/17 03:22 97.9 63 16 123/58 (79) 98 10/22/17 00:07 97.8 59 16 126/58 (80) 98 10/21/17 20:39 98.1 60 17 123/58 (79) 96 10/21/17 20:00 96 10/21/17 18:40 10/21/17 18:14 99.0 56 14 122/59 (80) 96 Room Air 10/21/17 15:57 65 15 114/57 (76) 66 17 118/60 (79) 10/21/17 14:28 97.7 65 15 134/63 (86) 98 Room Air I/O 10/21/17 10/21/17 10/21/17 10/22/17 10/22/17 10/22/17 07:00 15:00 23:00 07:00 15:00 23:00 Intake Total 2000 ml 450 ml 1000 ml Output Total 2000 ml Balance 2000 ml 450 ml 1000 ml -2000 ml Intake IV Total 2000 ml 450 ml 1000 ml Output Urine Total 2000 ml (Cale Bello MD R1) Result Diagram: 10/22/17 0330 10/22/17 0330 Imaging Last 48 hours Impressions Brain MRI 10/22/17 0000 Signed Impressions: Service Date/Time: Sunday, October 22, 2017 14:59 - CONCLUSION: 1. Bilateral cortical atrophy and chronic white matter changes. 2. Otherwise, unremarkable exam for patient's age. Paco Abarca MD Abdomen Ultrasound 10/22/17 0000 Signed Impressions: Service Date/Time: Sunday, October 22, 2017 13:34 - CONCLUSION: 1. There is a gallstone in the gallbladder. No biliary tract obstruction. 2. There are 2 benign-appearing hepatic cysts. 3. Simple left renal cyst. Paco Abarca MD Renal Ultrasound 10/21/17 0000 Signed Impressions: Service Date/Time: September 16:39 - CONCLUSION: Left sided simple renal cyst. No evidence of hydronephrosis. Mild splenomegaly. Jermaine Rosa MD Carotid Artery Ultrasound 10/21/17 0000 Signed Impressions: Service Date/Time: September 16:49 - CONCLUSION: No evidence of hemodynamically significant carotid stenosis. Retrograde flow in left vertebral artery. Jermaine Rosa MD Objective Remarks GENERAL: This is a well-nourished, well-developed patient in no apparent distress. SKIN: No rashes or ecchymoses. Warm and dry. Surgical flap on superior portion of scalp is healing well with clear serous exudate but is exquisitely tender to palpation. HEAD: Atraumatic. Normocephalic. Scalp tenderness as above. EYES: Pupils equal round and reactive. Extraocular motions intact. No scleral icterus. No injection or drainage. ENT: Nose without bleeding or drainage. Throat without erythema, tonsillar hypertrophy or exudate. Uvula midline. Airway patent. NECK: Trachea midline. No lymphadenopathy. Supple, nontender, no meningeal signs. CARDIOVASCULAR: Regular rate and rhythm with possible soft murmur; no gallop or rub. RESPIRATORY: Clear to auscultation. Breath sounds equal bilaterally. No wheezes , rales, or rhonchi. Costovertebral tenderness with left > right. GASTROINTESTINAL: Abdomen soft, non-tender, nondistended. No hepato-splenomegaly , or palpable masses. No guarding. MUSCULOSKELETAL: Extremities without clubbing, cyanosis, or edema. No joint tenderness, effusion, or edema noted. No calf tenderness. NEUROLOGICAL: AOx3. Cranial nerves II through XII grossly intact. Bilateral muscle weakness (4/5). Normal speech. Medications and IVs Current Medications Medications (Trade) Dose Ordered Sig/Jose David Route Start Time Stop Time Status Last Admin (Theragran) 1 tab DAILY PO 10/22/17 09:00 10/22/17 08:34 (Cozaar) 100 mg DAILY PO 10/22/17 09:00 10/22/17 08:34 (Pravachol) 40 mg DAILY PO 10/22/17 09:00 10/22/17 08:31 (NS Flush) 2 ml UNSCH PRN IV FLUSH 10/21/17 15:45 (NS Flush) 2 ml BID IV FLUSH 10/21/17 21:00 10/22/17 08:30 (Tylenol) 650 mg Q4H PRN PO 10/21/17 15:45 10/22/17 12:45 (Zofran Inj) 4 mg Q6H PRN IVP 10/21/17 15:45 (Heparin Inj) 5,000 units Q8H SQ 10/21/17 16:00 10/22/17 08:30 (Narcan Inj) 0.4 mg UNSCH PRN IV PUSH 10/21/17 15:45 (Aurora-Colace) 1 tab BID PO 10/21/17 21:00 10/21/17 19:55 (Milk Of Magnesia Liq) 30 ml Q12H PRN PO 10/21/17 15:45 (Senokot) 17.2 mg Q12H PRN PO 10/21/17 15:45 (Dulcolax Supp) 10 mg DAILY PRN RECTAL 10/21/17 15:45 (Lactulose Liq) 30 ml DAILY PRN PO 10/21/17 15:45 (Protonix) 40 mg DAILY PO 10/22/17 09:00 10/22/17 08:30 (Cale Bello MD R1) Urinary Catheter: No Bryant insert reason: Obstruction/Retention Date of Insertion: Oct 21, 2017 Date of Removal: Oct 22, 2017 (Cale Bello MD R1) Vascular Central Line Catheter: No (Cale Bello MD R1) A/P Assessment and Plan 82YO female w/PMHx HTN and melanoma s/p scalp surgery on 10/18 p/w 2 days of syncopal and near-syncopal episodes over the last 2 days. Consider orthostasis from dehydration and decreased PO intake vs bradycardia/CV etiology vs neurological etiology (vasovagal vs other) vs malignancy/mets. Pt met SIRS criteria on admit with rectal temp 96.0 and RR 24; however, no source of infection has been found (neg CXR and UA; blood cx pending). Pt seen and dw Luann Sheikh and Debbie Schwartz Impression: -Carotid US: negative -Renal US: left sided simple renal cyst; no hydropephrosis; mild splenomegaly -CT head: negative -CXR: negative for cardiopulmonary disease; however, calcified hilar lymph nodes noted -MRI head with and w/o contrast unremarkable -US abdomen negative -EKG: sinus bradycardia w/rate 56 and QTc 412ms -CBC: normal WBC, Hgb 11.5 -CMP: Na 132, BUN 29, Cr 1.44, AST 60 -Total CK 231 -> 126 -> 113 -CK-MB 5.2 (2.3%) -Trop 0.02 -Lipase 748 -TSH 2.19 -INR 1.0 -UA w/trace ketones, cx not indicated -Influenza a/b negative -Blood cx pending -Orthostatic vitals q4h wnl -Remove bryant and monitor UOP 1. Syncope w/LOC x1, no problems with swallowing though; Cardiovascular etiology less likely; more likely dehydration with orthostasis -Neuro consulted--appreciate recs -EEG pending -ECHO normal -PT -Tele -Activity OOB w/assistance 2. SIRS/SEPSIS: (pt with Penicillin G allergy) -Sepsis protocol -> 2L NS IVF -Lactate 1.6 -WBC 5.8 -Blood cx neg -UA neg--no cx indicated -Influenza a/b neg -Vancomycin 1g IV in ED -Aztreonam 2g IV in ED -Flagyl 100ml IV in ED 3. Head wound from melanoma surgery -Wound care consult -Tylenol 650mg pain/temp >100.4 4. Acute pancreatitis: no abdominal pain on admit; however, significant left CVA tenderness -Lipase 748 on admit -> 534 today -Resolving with IVF 4. GLENYS: Cr 0.January; 1.44 today and was told by her PCP she had a kidney problem in Aug 2017 -Cr 0.96 today--resolved with IVF -IVF as above -AM labs to follow 5. HTN -Pravastatin 40mg daily -Losartan 100mg daily 6. FEN/GI/PPx: -Fluids: 2x 1L boluses in ED, now mx NS IVF @100ml/hr -Electrolytes: hyponatremia to 132 in ED-> correcting with fluids as above -Nutrition: regular diet, as tolerated -GI: Protonix 40mg daily -PPx: Heparin 5,000 units q8h Bowel regimen Discharge Planning Plan discharge tomorrow (10/23) (Cale Bello MD R1) Attending Attestation Patient seen and examined. Case reviewed and discussed. Agree with plan of care as discussed with me and documented in the resident note. (Nicole Sheikh MD) Problem List: (1) FEN/GI/PPx (2) Hypertension ICD Codes: I10 - Essential (primary) hypertension (3) Syncope ICD Codes: R55 - Syncope and collapse Status: Acute (4) Acute kidney injury ICD Codes: N17.9 - Acute kidney failure, unspecified Status: Acute (5) Scalp wound ICD Codes: S01.00XA - Unspecified open wound of scalp, initial encounter (6) Benign hypertension ICD Codes: I10 - Benign hypertension Status: Chronic (Cale Bello MD R1) Problem Qualifiers (1) Syncope: Qualified Codes: R55 - Syncope and collapse (2) Scalp wound: Qualified Codes: S01.00XA - Unspecified open wound of scalp, initial encounter Cale Bello MD R1 Oct 22, 2017 13:08 Nicole Sheikh MD Oct 25, 2017 09:21
--- NOTE | 2017-10-22 13:46 | PD.WCN.NOT ---
Wound Consult Description: Consult for WOUND MANAGEMENT of head s/p melanoma removal per Dr Bello. Communicated with: Patient MICHAELLE Dorsey Recommendation: Continue to apply thin layer of medicated ointment BID to surgical incision with approximated edges and intact sutures Additional Information: Patient seen in H pod for approximated surgical incision with 11 intact sutures noted to the head. Incision resembles a backwards 5 shape with a small area measuring 1cm circumferentially at approximately 9 o'clock with fluctuance noted. The approximated wound edges are noted with dried blood. There is no drainage, no erythema, and no induration noted to periwound. Trini Garcia [facility] Oct 22, 2017 13:46
[2017-10-22] MEDS ORDERED: HALOPERIDOL LACTATE 5 MG/ML AMP IM ONE (14:00)
--- NOTE | 2017-10-22 14:13 | ECHRPT ---
Indication: SYNCOPE CONCLUSIONS The left ventricular systolic function is normal with an estimated ejection fraction in the range of 60-65%. Trace mitral valve regurgitation. There is a trace to mild tricuspid valve regurgitation. BP: 142 / 64 HR: 62 Rhythm: Sinus MEASUREMENTS (Male / Female) Normal Values Technical Quality:Fair 2D ECHO LV Diastolic Diameter PLAX 4.1 cm 4.2 - 5.9 / 3.9 - 5.3 cm LV Systolic Diameter PLAX 2.7 cm IVS Diastolic Thickness 1.1 cm 0.6 - 1.0 / 0.6 - 0.9 cm LVPW Diastolic Thickness 1.1 cm 0.6 - 1.0 / 0.6 - 0.9 cm LV Relative Wall Thickness 0.5 RV Internal Dim ED PLAX 2.0 cm LVOT Diameter 1.9 cm Aortic Root Diameter 2.8 cm LA Systolic Diameter LX 2.6 cm 3.0 - 4.0 / 2.7 - 3.8 cm M-MODE AV Cusp Separation MM 1.7 cm DOPPLER AV Peak Velocity 183.0 cm/s AV Peak Gradient 13.4 mmHg AV Mean Gradient 7.0 mmHg AV Velocity Time Integral 37.2 cm LVOT Peak Velocity 111.0 cm/s LVOT Peak Gradient 4.9 mmHg LVOT Velocity Time Integral 24.2 cm AV Area Cont Eq vti 1.8 cm AV Area Cont Eq pk 1.7 cm Mitral E Point Velocity 109.0 cm/s Mitral A Point Velocity 109.0 cm/s Mitral E to A Ratio 1.0 LV E' Lateral Velocity 7.7 cm/s Mitral E to LV E' Lateral Ratio 14.2 LV E' Septal Velocity 7.2 cm/s Mitral E to LV E' Septal Ratio 15.1 TR Peak Velocity 232.0 cm/s TR Peak Gradient 21.5 mmHg PV Peak Velocity 78.2 cm/s PV Peak Gradient 2.4 mmHg FINDINGS LEFT VENTRICLE Normal left ventricular size. Wall thickness is measured at the upper limits of normal. The left ventricular systolic function is normal with an estimated ejection fraction in the range of 60-65%. RIGHT VENTRICLE Normal right ventricular size and systolic function. LEFT ATRIUM The left atrial size is normal. RIGHT ATRIUM The right atrial size is normal. ATRIAL SEPTUM Normal atrial septal thickness. AORTA The aortic root and proximal ascending aorta are normal in size on limited imaging. MITRAL VALVE Structurally normal mitral valve. Trace mitral valve regurgitation. No mitral valve stenosis. AORTIC VALVE Grossly normal aortic valve. No aortic valve stenosis or regurgitation. TRICUSPID VALVE Structurally normal tricuspid valve. There is a trace to mild tricuspid valve regurgitation. The estimated pulmonary arterial pressure is 31 mmHg. PULMONARY VALVE The pulmonary valve is not well visualized. VESSELS The inferior vena cava is normal in size. PERICARDIUM No pericardial effusion. Yoan Mcneil DO (Electronically Signed) Final Date:22 October 2017 14:13
--- NOTE | 2017-10-22 14:56 | RADRPT ---
EXAM DATE/TIME: 10/22/2017 13:34 [facility] COMPARISON: No previous studies available for comparison. INDICATIONS : Abnormal labs. MEDICAL HISTORY : Arthritis. Vertigo. Syncope. Hyperlipidemia. HTN. Renal disease. Dysuria. Melanoma. SURGICAL HISTORY : section. Hysterectomy. Bilateral cataract surgery. Bilateral knee replacement. Melanoma lan ambar from scalp. ENCOUNTER: Subsequent ACUITY: 1 day PAIN SCORE: 0/10 LOCATION: Abdomen. MEASUREMENTS: LIVER: 13.3 cm length COMMON DUCT: 4 mm RIGHT KIDNEY: 8.7 x 4.0 x 3.1 cm LEFT KIDNEY: 9.1 x 3.8 x 2.7 cm SPLEEN: 11.8 cm length AORTA: 2.2cm maximal FINDINGS: LIVER: Normal echotexture without focal lesion or ductal dilatation. There is a benign-appearing hepatic cy st in the left lobe measuring 1.4 cm. There is a benign-appearing hepatic cyst in the right lobe ze uring 2.3 cm. COMMON DUCT: No intraluminal mass or stone visualized. GALLBLADDER: There is a gallstone in the gallbladder. No fluid around the gallbladder. Gallbladder wall is not thi ckened. The gallstone measures approximately 9 mm. PANCREAS: The visualized portions are within normal limits. RIGHT KIDNEY: No hydronephrosis, stone or mass. LEFT KIDNEY: No hydronephrosis, stone or mass. There is a cyst in the upper pole measuring 2.3 cm. SPLEEN: No focal lesion. AORTA: Non aneurysmal. IVC: Within normal limits. CONCLUSION: 1. There is a gallstone in the gallbladder. No biliary tract obstruction. 2. There are 2 benign-appearing hepatic cysts. 3. Simple left renal cyst. Paco Abarca MD on October 22, 2017 at 14:50 Board Certified Radiologist. This report was verified electronically.
--- NOTE | 2017-10-22 15:33 | RADRPT ---
EXAM DATE/TIME: 10/22/2017 14:59 [facility] COMPARISON: CT BRAIN W/O CONTRAST, October 21, 2017, 12:13. INDICATIONS : Mass. CONTRAST: 10 cc Omniscan (gadodiamide) IV MEDICAL HISTORY : Hypertension. Arthritis. Melanoma. SURGICAL HISTORY : section. Hysterectomy. Bi-lateral TKA. Breast biopsy. Melanoma removed. ENCOUNTER: Subsequent ACUITY: 1 day PAIN SCORE: 0/10 LOCATION: cranial TECHNIQUE: Multiplanar, multisequence MRI of the brain was performed both prior to and following the administrat ion of paramagnetic contrast. FINDINGS: CEREBRUM: The ventricles are normal for age. There is bilateral cortical atrophy. No evidence of midline shift , mass lesion, hemorrhage or acute infarction. No extraaxial fluid collections are seen. The pituit nikita gland and suprasellar cistern are normal in configuration. WHITE MATTER: There is chronic white matter changes characteristic of ischemic demyelinization. POSTERIOR FOSSA: The cerebellum and brainstem are intact. The 4th ventricle is midline. The cerebellopontine angle is unremarkable. The cerebellar tonsils are normal in position. DIFFUSION IMAGING: No focal areas of restricted diffusion are seen. No evidence of acute infarction. EXTRACRANIAL: The visualized portions of the orbits and paranasal sinuses are unremarkable. POST-CONTRAST: No abnormal areas of parenchymal or dural enhancement. No evidence of blood-brain barrier breakdown. CONCLUSION: 1. Bilateral cortical atrophy and chronic white matter changes. 2. Otherwise, unremarkable exam for patient's age. Paco Abarca MD on October 22, 2017 at 15:28 Board Certified Radiologist. This report was verified electronically.
--- NOTE | 2017-10-22 17:28 | MB ---
cc: JOSE SALVADOR MD DATE OF CONSULTATION 10/22/17 An 82-year old with history of passing out yesterday. She was at home accompanied by family. She was sitting and after family removed a bandage on the top of her head from a recent melanoma surgery and cleaned it up, the patient felt dizzy and passed out. She was noted to be a bit staff and she was out for a short period of time. She had no incontinence. It is described that a few days ago she had another dizzy spell but did not actually pass out. The patient denies history of stroke or seizures. MEDICATIONS At home apparently just Simvastatin and Olmesartan Her blood pressure in the emergency room was not significantly low. Today there has been a blood pressure of 107/57. CBC unremarkable. Sodium 132, potassium 4.8 yesterday, BUN 29, creatinine 1.42. Today the numbers are 17 and 0.96 respectively. Blood sugar was [address] head shows unremarkable findings. Carotid ultrasound - no evidence of significant stenosis. NEUROLOGIC EXAM On exam, the patient was alert, pleasant, oriented. Ocular movements and visual eagle full. Slight left ptosis. No facial weakness. Speech and language normal. [id number] testing normal. She has fairly good strength throughout on the bedside exam. No lateralizing findings. Reflexes diminished but present including the ankles. Plantar responses are flexor. ASSESSMENT Syncopal episode. It might have been orthostatic/vasovagal event as it evolved after the dressing for the recent scalp surgery was removed. There was some dehydration. She is feeling better today, but still apparently not ambulating well. Workup to include EEG, echocardiogram. We will request an MRI of brain as well. Otherwise being evaluated for possible sepsis, recent frontoparietal melanoma skin surgery. I will follow the neurological course. Thank you for asking us to assist in her care. MD KANE Mays/SA /1:13 PM /4:59 PM
[2017-10-23] VITALS: PULSE 49
[2017-10-23] MEDS: HEPARIN SODIUM - SQ 10,000 UNITS/ML VIAL SQ SCH ×2 (01:21→09:27)
[2017-10-23 03:40] VITALS: PULSE 52
[2017-10-23] MEDS: ACETAMINOPHEN 325 MG TAB PO PRN ×2 (03:57→12:01)
[2017-10-23 04:34] VITALS: BP 146/67; PULSE 57; RESP 16; TEMP 98; O2SAT 97
[2017-10-23 07:02] LABS: HEMATOCRIT 28.6 % (35.0-46.0); HEMOGLOBIN 9.5 GM/DL (11.6-15.3); MEAN CELL VOLUME 89.3 FL (80.0-100.0); MEAN CORPUSCULAR HEMOGLOBIN 29.8 PG (27.0-34.0); MEAN CORPUSCULAR HGB CONC 33.4 % (32.0-36.0); MEAN PLATELET VOLUME 7.8 FL (7.0-11.0); PLATELET COUNT 259 TH/MM3 (150-450); RED CELL DISTRIBUTION WIDTH 14.2 % (11.6-17.2)
--- NOTE | 2017-10-23 07:35 | HHI.PR ---
Review/Management Daily Summary per staff did well overnight mri brain ok i believe eeg was normal but i do not see report yet will follow prn Subjective Subjective Comments No acute events reported No headache No chest pain No dyspnea Active Medications Current Medications Medications (Trade) Dose Ordered Sig/Jose David Route Start Time Stop Time Status Last Admin (Theragran) 1 tab DAILY PO 10/22/17 09:00 10/22/17 08:34 (Cozaar) 100 mg DAILY PO 10/22/17 09:00 10/22/17 08:34 (Pravachol) 40 mg DAILY PO 10/22/17 09:00 10/22/17 08:31 (NS Flush) 2 ml UNSCH PRN IV FLUSH 10/21/17 15:45 (NS Flush) 2 ml BID IV FLUSH 10/21/17 21:00 10/22/17 20:40 (Tylenol) 650 mg Q4H PRN PO 10/21/17 15:45 10/23/17 03:57 (Zofran Inj) 4 mg Q6H PRN IVP 10/21/17 15:45 (Heparin Inj) 5,000 units Q8H SQ 10/21/17 16:00 10/23/17 01:21 (Narcan Inj) 0.4 mg UNSCH PRN IV PUSH 10/21/17 15:45 (Aurora-Colace) 1 tab BID PO 10/21/17 21:00 10/22/17 20:39 (Milk Of Magnesia Liq) 30 ml Q12H PRN PO 10/21/17 15:45 (Senokot) 17.2 mg Q12H PRN PO 10/21/17 15:45 10/22/17 20:50 (Dulcolax Supp) 10 mg DAILY PRN RECTAL 10/21/17 15:45 (Lactulose Liq) 30 ml DAILY PRN PO 10/21/17 15:45 (Protonix) 40 mg DAILY PO 10/22/17 09:00 10/22/17 08:30 Sodium Chloride 1,000 ml @ 100 mls/hr Q10H IV 10/22/17 13:00 10/22/17 22:09 Allergies Allergies Coded Allergies penicillin G (Verified Allergy, Severe, HEART, 10/21/17) Exam I&O / VS Vital Signs Date Time Temp Pulse Resp B/P (MAP) Pulse Ox O2 Delivery O2 Flow Rate FiO2 10/23/17 04:34 98.0 57 16 146/67 (93) 97 10/23/17 03:40 52 10/23/17 00:00 49 10/22/17 23:45 97.9 56 17 135/60 (85) 98 10/22/17 21:11 98.0 55 17 147/68 (94) 98 10/22/17 20:08 94 10/22/17 16:55 51 10/22/17 15:36 98.4 55 18 142/65 (90) 100 137/64 (88) 138/65 (89) 10/22/17 12:18 107/57 (74) 10/22/17 12:17 116/51 (72) 10/22/17 12:16 97.1 59 18 117/50 (72) 94 10/22/17 09:28 21 Objective Radiology Results Last 48 hours Impressions Brain MRI 10/22/17 0000 Signed Impressions: Service Date/Time: Sunday, October 22, 2017 14:59 - CONCLUSION: 1. Bilateral cortical atrophy and chronic white matter changes. 2. Otherwise, unremarkable exam for patient's age. Paco Abarca MD Abdomen Ultrasound 10/22/17 0000 Signed Impressions: Service Date/Time: Sunday, October 22, 2017 13:34 - CONCLUSION: 1. There is a gallstone in the gallbladder. No biliary tract obstruction. 2. There are 2 benign-appearing hepatic cysts. 3. Simple left renal cyst. Paco Abarca MD Micro and Labs Laboratory Tests Test 10/23/17 06:25 White Blood Count 7.0 Red Blood Count 3.20 Hemoglobin 9.5 Hematocrit 28.6 Mean Corpuscular Volume 89.3 Mean Corpuscular Hemoglobin 29.8 Mean Corpuscular Hemoglobin Concent 33.4 Red Cell Distribution Width 14.2 Platelet Count 259 Mean Platelet Volume 7.8 Date/Time Source Procedure Growth Status 10/21/17 12:05 Blood Peripheral Aerobic Blood Culture - Preliminary NO GROWTH IN 1 DAY Resulted 10/21/17 12:05 Blood Peripheral Anaerobic Blood Culture - Preliminary NO GROWTH IN 1 DAY Resulted 10/21/17 13:40 Nasal Washing Influenza Types A,B Antigen (GWEN) - Final NEGATIVE FOR FLU A AND B ANTIGEN.... Complete Huey Fuentes MD Oct 23, 2017 07:35
[2017-10-23 07:45] LABS: BICARBONATE 17.3 MEQ/L (21.0-32.0); CALCIUM 6.7 MG/DL (8.5-10.1); CREATININE 0.73 MG/DL (0.50-1.00)
[2017-10-23 07:59] LABS: CALCIUM-PROTEIN CORRECTED 7.5 MG/DL (8.5-10.1); TOTAL PROTEIN 5.4 GM/DL (6.4-8.2)
[2017-10-23 08:10] VITALS: PULSE 52
[2017-10-23 08:29] VITALS: BP 138/63; PULSE 70; RESP 18; TEMP 98; O2SAT 97
--- NOTE | 2017-10-23 08:45 | MG ---
cc: JOSE SALVADOR M.D. Lab No: Date: 10/22/2017 Age: 82 Sex: F Race: REQUESTING: An EEG was obtained on this 82-year-old patient who is awake and asleep and being evaluated for syncope. The EEG shows beta rhythms diffusely. There are some intermixed low to mid amplitude 10-12 per second alpha rhythms posteriorly. The background is reactive. The patient drowses and there is more widespread beta activity. Photic stimulation showed a bilateral driving response. INTERPRETATION: Normal awake and drowsy EEG. MD KANE Mays/JAQUELIN /8:04 PM /8:31 AM
--- NOTE | 2017-10-23 08:46 | HHI.FPPN ---
Subjective Remarks Patient wants to go home. She no longer has dizziness and has been ambulating in the CDU without problems. She has follow-up with a accounts payable accountant in 2 weeks. (Rhona Frausto MD R2) Objective Vitals Vital Signs Date Time Temp Pulse Resp B/P (MAP) Pulse Ox O2 Delivery O2 Flow Rate FiO2 10/23/17 08:29 98.0 70 18 138/63 (88) 97 10/23/17 04:34 98.0 57 16 146/67 (93) 97 10/23/17 03:40 52 10/23/17 00:00 49 10/22/17 23:45 97.9 56 17 135/60 (85) 98 10/22/17 21:11 98.0 55 17 147/68 (94) 98 10/22/17 20:08 94 10/22/17 16:55 51 10/22/17 15:36 98.4 55 18 142/65 (90) 100 137/64 (88) 138/65 (89) 10/22/17 12:18 107/57 (74) 10/22/17 12:17 116/51 (72) 10/22/17 12:16 97.1 59 18 117/50 (72) 94 10/22/17 09:28 21 I/O 10/22/17 10/22/17 10/22/17 10/23/17 10/23/17 10/23/17 07:00 15:00 23:00 07:00 15:00 23:00 Intake Total 1000 ml 480 ml Output Total 2000 ml 460 ml Balance 1000 ml -2000 ml -460 ml 480 ml Intake Oral 480 ml IV Total 1000 ml Output Urine Total 2000 ml 460 ml # Voids 3 # Bowel Movements 1 (Rhona Frausto MD R2) Result Diagram: 10/23/17 0625 10/23/17 0625 Objective Remarks GENERAL: This is a well-nourished, well-developed patient in no apparent distress. SKIN: No rashes or ecchymoses. Warm and dry. Surgical flap on superior portion of scalp is healing well with clear serous exudate but is tender to palpation. HEAD: Atraumatic. Normocephalic. Scalp tenderness as above. EYES: Pupils equal round and reactive. Extraocular motions intact. No scleral icterus. No injection or drainage. ENT: Nose without bleeding or drainage. Throat without erythema, tonsillar hypertrophy or exudate. Uvula midline. Airway patent. NECK: Trachea midline. No lymphadenopathy. Supple, nontender, no meningeal signs. CARDIOVASCULAR: Regular rate and rhythm with possible soft murmur; no gallop or rub. RESPIRATORY: Clear to auscultation. Breath sounds equal bilaterally. No wheezes , rales, or rhonchi. GASTROINTESTINAL: Abdomen soft, non-tender, nondistended. No hepato-splenomegaly , or palpable masses. No guarding. MUSCULOSKELETAL: Extremities without clubbing, cyanosis, or edema. No joint tenderness, effusion, or edema noted. No calf tenderness. NEUROLOGICAL: AOx3. Cranial nerves II through XII grossly intact. Bilateral muscle weakness (4/5). Normal speech. (Eko,Rhona Jacob MD R2) Date of Insertion: Oct 21, 2017 Date of Removal: Oct 22, 2017 (Eko,Rhona Jacob MD R2) A/P Assessment and Plan 82YO female w/PMHx HTN and melanoma s/p scalp surgery on 10/18 p/w 2 days of syncopal and near-syncopal episodes over the last 2 days. Consider orthostasis from dehydration and decreased PO intake vs bradycardia/CV etiology vs neurological etiology (vasovagal vs other) vs malignancy/mets. Pt met SIRS criteria on admit with rectal temp 96.0 and RR 24; however, no source of infection has been found (neg CXR and UA; blood cx negative). Pt dw Dr. Sheikh Impression: -Carotid US: negative -Renal US: left sided simple renal cyst; no hydropephrosis; mild splenomegaly -CT head: negative -CXR: negative for cardiopulmonary disease; however, calcified hilar lymph nodes noted -MRI head with and w/o contrast unremarkable -US abdomen negative -EKG: sinus bradycardia w/rate 56 and QTc 412ms -CBC: normal WBC, Hgb 11.5 -CMP: Na 132, BUN 29, Cr 1.44, AST 60 -Total CK 231 -> 126 -> 113 -CK-MB 5.2 (2.3%) -Trop 0.02 -Lipase 748 -TSH 2.19 -INR 1.0 -UA w/trace ketones, cx not indicated -Influenza a/b negative -Blood cx negative -Orthostatic vitals q4h wnl - have been negative so far 1. Syncope w/LOC x1, no problems with swallowing though; Cardiovascular etiology less likely; more likely dehydration with orthostasis -Neuro consulted--appreciate recs -EEG normal -ECHO normal -PT -Tele -Activity OOB w/assistance 2. SIRS/SEPSIS: (pt with Penicillin G allergy) -Sepsis protocol -> 2L NS IVF -Lactate 1.6 -WBC 5.8 -Blood cx neg -UA neg--no cx indicated -Influenza a/b neg -Vancomycin 1g IV in ED -Aztreonam 2g IV in ED -Flagyl 100ml IV in ED 3. Head wound from melanoma surgery -Wound care consult -Tylenol 650mg pain/temp >100.4 4. Acute pancreatitis: no abdominal pain on admit; however, significant left CVA tenderness -Lipase 748 on admit -> 534 on 10/22 -Resolving with IVF 4. GLENYS: Cr 0.January; 1.44 today and was told by her PCP she had a kidney problem in Aug 2017 -Cr within normal limits -- resolved with IVF -IVF as above 5. HTN -Pravastatin 40mg daily -Losartan 100mg daily 6. FEN/GI/PPx: -Fluids:NS IVF @100ml/hr -Electrolytes: On exam replace as needed -Nutrition: regular diet, as tolerated -GI: Protonix 40mg daily -PPx: Heparin 5,000 units q8h Bowel regimen Discharge Planning Plan to discharge home today (10/23) (Rhona Frausto MD R2) Attending Attestation Patient seen and examined. Case reviewed and discussed. Agree with plan of care as discussed with me and documented in the resident note. (Nicole Sheikh MD) Problem List: (1) FEN/GI/PPx (2) Hypertension ICD Codes: I10 - Essential (primary) hypertension (3) Syncope ICD Codes: R55 - Syncope and collapse Status: Acute (4) Acute kidney injury ICD Codes: N17.9 - Acute kidney failure, unspecified Status: Acute (5) Scalp wound ICD Codes: S01.00XA - Unspecified open wound of scalp, initial encounter (6) Benign hypertension ICD Codes: I10 - Benign hypertension Status: Chronic (Rhona Frausto MD R2) Problem Qualifiers (1) Syncope: Qualified Codes: R55 - Syncope and collapse (2) Scalp wound: Qualified Codes: S01.00XA - Unspecified open wound of scalp, initial encounter Eko,Rhona Jacob MD R2 Oct 23, 2017 08:46 Nicole Sheikh MD Oct 25, 2017 09:09
[2017-10-23] MEDS: SODIUM CHLORIDE 0.9% FLUSH 10 ML FLUSH IV FLUSH SCH (09:00)
[2017-10-23] MEDS: PRAVASTATIN SOD 40 MG TAB PO SCH (09:26)
[2017-10-23] MEDS: MULTIVITAMIN TAB PO SCH (09:27)
[2017-10-23] MEDS: LOSARTAN 50 MG TAB PO SCH (09:27)
[2017-10-23] MEDS: PANTOPRAZOLE SOD 40 MG DELAYED RELEASE TAB PO SCH (09:27)
[2017-10-23] MEDS: DOCUSATE SODIUM 50 MG/SENNA 8.6 MG TAB PO SCH (09:27)
[2017-10-23] MEDS: SODIUM CHLOR 0.9% 1000 ML INJ 1,000 ML IV SCH (09:32)
[2017-10-23 12:00] VITALS: PULSE 59
--- NOTE | 2017-10-23 12:40 | HHI.FF ---
Face to Face Verification Diagnosis: (1) Syncope (2) Hypertension (3) Melanoma of scalp (4) Acute kidney injury Physical Therapy Order: Evaluate and Treat, Improve ambulation, Strength and gait training Home Health Nursing Order: Medical education Signs/symptoms of disease process Medication education-adverse effect Wound care and dressing changes Nursing assessment with vital signs I have seen patient Haritha Olmedo on 10/23/17. My clinical findings support the need for the requested home health care services because: Ltd mobility - disease progression Limited ability to care for self I certify that my clinical findings support that this patient is homebound because: Impaired cognitive ability/safety Unsteady gait/balance Need for psychosocial assistance Unable to use public transportation Rhona Frausto MD R2 Oct 23, 2017 12:40
--- NOTE | 2017-10-23 12:41 | HHI.DCPOC ---
Discharge Care Plan Diagnosis: (1) Syncope (2) Acute kidney injury (3) Hypertension (4) Scalp wound (5) Melanoma of scalp (6) Benign hypertension Goals to Promote Your Health * To prevent worsening of your condition and complications * To maintain your health at the optimal level Directions to Meet Your Goals Take your medications as prescribed Follow your dietary instruction Follow activity as directed Keep your appointments as scheduled Take your immunizations and boosters as scheduled If your symptoms worsen call your PCP, if no PCP go to Urgent Care Center or Emergency Room Smoking is Dangerous to Your Health. Avoid second hand smoke Call the 24-hour hour crisis hotline for domestic abuse at Rhona Frausto MD R2 Oct 23, 2017 12:41
--- NOTE | 2017-10-23 17:13 | HHI.DS ---
Discharge Summary Admission Date Oct 21, 2017 at 2:37 pm Discharge Date: Oct 23, 2017 Admitting Diagnosis acute syncope, GLENYS, sepsis, hypothermia (1) Benign hypertension ICD Codes: I10 - Benign hypertension Status: Chronic (2) Syncope Diagnosis: Principal ICD Codes: R55 - Syncope and collapse Status: Acute (3) Acute kidney injury Diagnosis: Secondary ICD Codes: N17.9 - Acute kidney failure, unspecified Status: Acute (4) Scalp wound Diagnosis: Secondary ICD Codes: S01.00XA - Unspecified open wound of scalp, initial encounter (5) Hypertension Diagnosis: Secondary ICD Codes: I10 - Essential (primary) hypertension Consultants Neurology - Dr. Fuentes Brief History Ms Olmedo is a pleasant 82YO female w/PMHx of HTN and melanoma s/p Mohs surgery on 10/11 who presents to the ED after 2 syncopal/near syncopal events in the last 2 days. Yesterday when she stood up and turned she got dizzy and nearly fainted, but did not lose consciousness or fall. Today her niece changed the wound dressing on her head from Mohs surgery for melanoma, then the pt stood up from sitting and got dizzy, was helped safely to the floor by her niece , and lost consciousness for 2-3 minutes before opening her eyes and asked her niece "why am I on the floor"? Pt has no recollection of these events but knows she is not herself over the past few days. She was not incontinent of urine or stool at the time, but she notes she sometimes has to urinate but has trouble initiating a stream. Her back is also hurting badly for a couple of weeks with left > right. This occurred near the time when she was told by her PCP that she has a kidney problem. She is attended by her niece who does most of the reporting. Her niece indicates the pt was cold, dehydrated from reduced PO intake over the last several weeks, and has had chills today. The pt had Mohs surgery on her head on 10/11 for melanoma. On 10/18 the skin flap was closed by Dr Mandujano. Other sxs include pt feeling weak and lightheaded; uncontrolled BPs in August leading to prescription of a new medication the pt cannot recall the name of, and referral to a kidney specialist for the aforementioned kidney problem. Denies CP, SOB, N/V/D and DVT pain. CBC/BMP: 10/23/17 0625 10/23/17 0625 Significant Findings Laboratory Tests Test 10/21/17 12:00 10/21/17 12:05 10/21/17 14:25 10/21/17 21:10 Red Blood Count 3.65 MIL/MM3 (4.00-5.30) Hemoglobin 11.5 GM/DL (11.6-15.3) Hematocrit 32.1 % (35.0-46.0) Neutrophils (%) (Auto) 81.1 % (16.0-70.0) Neutrophils # (Auto) 8.9 TH/MM3 (1.8-7.7) Activated Partial Thromboplast Time 21.3 SEC (24.3-30.1) Blood Urea Nitrogen 29 MG/DL (7-18) Creatinine 1.44 MG/DL (0.50-1.00) Aspartate Amino Transf (AST/SGOT) 60 U/L (15-37) Sodium Level 132 MEQ/L (136-145) Estimat Glomerular Filtration Rate 35 ML/MIN (>89) Total Creatine Kinase 231 U/L (26-192) Creatine Kinase MB 5.2 NG/ML (0.5-3.6) Troponin I LESS THAN 0.02 NG/ML Lipase 748 U/L (73-393) Urine Ketones TRACE mg/dL (NEG) Test 10/22/17 03:30 10/23/17 06:25 Red Blood Count 3.48 MIL/MM3 (4.00-5.30) 3.20 MIL/MM3 (4.00-5.30) Hemoglobin 10.4 GM/DL (11.6-15.3) 9.5 GM/DL (11.6-15.3) Hematocrit 30.6 % (35.0-46.0) 28.6 % (35.0-46.0) Monocytes (%) (Auto) 8.2 % (0.0-8.0) Total Protein 6.0 GM/DL (6.4-8.2) 5.4 GM/DL (6.4-8.2) Albumin 3.2 GM/DL (3.4-5.0) Calcium Level 8.2 MG/DL (8.5-10.1) 6.7 MG/DL (8.5-10.1) Aspartate Amino Transf (AST/SGOT) 52 U/L (15-37) Chloride Level 111 MEQ/L (98-107) 109 MEQ/L (98-107) Estimat Glomerular Filtration Rate 55 ML/MIN (>89) 76 ML/MIN (>89) Lipase 534 U/L (73-393) Random Glucose 64 MG/DL (74-106) Carbon Dioxide Level 17.3 MEQ/L (21.0-32.0) Protein Corrected Calcium 7.5 MG/DL (8.5-10.1) Imaging Last 72 hours Impressions Brain MRI 10/22/17 0000 Signed Impressions: Service Date/Time: Sunday, October 22, 2017 14:59 - CONCLUSION: 1. Bilateral cortical atrophy and chronic white matter changes. 2. Otherwise, unremarkable exam for patient's age. Paco Abarca MD Abdomen Ultrasound 10/22/17 0000 Signed Impressions: Service Date/Time: Sunday, October 22, 2017 13:34 - CONCLUSION: 1. There is a gallstone in the gallbladder. No biliary tract obstruction. 2. There are 2 benign-appearing hepatic cysts. 3. Simple left renal cyst. Paco Abarca MD Renal Ultrasound 10/21/17 0000 Signed Impressions: Service Date/Time: September 16:39 - CONCLUSION: Left sided simple renal cyst. No evidence of hydronephrosis. Mild splenomegaly. Jermaine Rosa MD Carotid Artery Ultrasound 10/21/17 0000 Signed Impressions: Service Date/Time: September 16:49 - CONCLUSION: No evidence of hemodynamically significant carotid stenosis. Retrograde flow in left vertebral artery. Jermaine Rosa MD PE at Discharge GENERAL: This is a well-nourished, well-developed patient in no apparent distress. SKIN: No rashes or ecchymoses. Warm and dry. Surgical flap on superior portion of scalp is healing well with clear serous exudate but is tender to palpation. HEAD: Atraumatic. Normocephalic. Scalp tenderness as above. EYES: Pupils equal round and reactive. Extraocular motions intact. No scleral icterus. No injection or drainage. ENT: Nose without bleeding or drainage. Throat without erythema, tonsillar hypertrophy or exudate. Uvula midline. Airway patent. NECK: Trachea midline. No lymphadenopathy. Supple, nontender, no meningeal signs. CARDIOVASCULAR: Regular rate and rhythm with possible soft murmur; no gallop or rub. RESPIRATORY: Clear to auscultation. Breath sounds equal bilaterally. No wheezes , rales, or rhonchi. GASTROINTESTINAL: Abdomen soft, non-tender, nondistended. No hepato-splenomegaly , or palpable masses. No guarding. MUSCULOSKELETAL: Extremities without clubbing, cyanosis, or edema. No joint tenderness, effusion, or edema noted. No calf tenderness. NEUROLOGICAL: AOx3. Cranial nerves II through XII grossly intact. Bilateral muscle weakness (4/5). Normal speech. Hospital Course 82YO female w/PMHx HTN and melanoma s/p scalp surgery on 10/18 p/w 2 days of syncopal and near-syncopal episodes over the last 2 days. Pt met SIRS criteria on admit with rectal temp 96.0F and RR 24; however, no source of infection was found (neg CXR and UA; blood cx negative, negative imaging and EEG). The etiology of her syncope was determined to be most likely vasovagal (patient states that she faints at the site of blood and the syncopal episodes were related to when her scalp wound dressing were changed). She improved markedly with administration of fluids and no longer had dizziness or syncopal episodes. She also showed great improvement in her serum creatinine with resolution of her acute kidney injury. She was deemed stable for discharge on 10/23/2017 to follow up with her PCP. Pt Condition on Discharge: Stable Discharge Disposition: Disch w/ Home Health Serv Discharge Instructions DIET: Follow Instructions for: As Tolerated, No Restrictions Activities you can perform: Regular-No Restrictions Follow up Referrals: PCP Follow-up - 1 Week Continued Medications: Multiple Vitamin (Multiple Vitamin) 1 Tab 1 TAB PO DAILY for Nutritional Supplement, TAB 0 Refills Olmesartan (Olmesartan) 40 Mg Tab 40 MG PO DAILY for Blood Pressure Management, #30 TAB 0 Refills Simvastatin (Simvastatin) 20 Mg Tab 20 MG PO DAILY for Cholesterol Management, #30 TAB 0 Refills Rhona Frausto MD R2 Oct 23, 2017 5:13 pm
== END 2017-10-23 14:28 | disposition home or self-care (01) | DRG 312 ==
LOC: NEPE 11:30 → NEDA 14:37 → NEPHCDU 18:49 → OBSVTOIN 19:34
PROVIDERS: ADMIT Family Medicine; ATTEND Family Medicine
DX: R55 Syncope and collapse (principal); N17.9 Acute kidney failure, unspecified; K85.90 Acute pancreatitis without necrosis or infection, unspecified; R65.10 Systemic inflammatory response syndrome (SIRS) of non-infectious origin without acute organ dysfunction; E86.0 Dehydration; R00.1 Bradycardia, unspecified; N28.1 Cyst of kidney, acquired; R16.1 Splenomegaly, not elsewhere classified; E87.1 Hypo-osmolality and hyponatremia; I10 Essential (primary) hypertension; M19.90 Unspecified osteoarthritis, unspecified site; Z96.653 Presence of artificial knee joint, bilateral; Z90.710 Acquired absence of both cervix and uterus; Z88.0 Allergy status to penicillin; Z85.820 Personal history of malignant melanoma of skin; Z98.890 Other specified postprocedural states
CPT/HCPCS: 51702; 70450; 70553; 71045; 76700; 76775; 80048; 80053; 81001; 82550; 82552; 83605; 83690; 83735; 84155; 84443; 84484; 85025; 85027; 85610; 85730; 87040; 87804; 93005; 93306; 93880; 95819; 96360; 96361; A9579; G8987-GP; G8988-GP; J1630; J1644; J2405; J3370; J7030; J7050